=== PATIENT | male | born 1940 | race Caucasian/White ===

== ENCOUNTER 2020-05-08 02:17 | Outpatient (CLI) | payer MEDICARE, OTHER, SELFPAY ==
[2020-05-08 19:20] LABS: SARS-CoV-2 RNA PCR Negative
== END 2020-05-08 02:18 | disposition home or self-care (01) ==
LOC: ANHCOVIDDT 02:17
PROVIDERS: PCP Family Medicine; Visit Provider Internal Medicine Gastroenterology
DX: Z01.812 Encounter for preprocedural laboratory examination (principal); Z20.828 Contact with and (suspected) exposure to other viral communicable diseases
CPT/HCPCS: 87635; C9803; U0003

== ENCOUNTER 2020-05-10 02:12 | Day surgery (SDC) | payer MEDICARE, OTHER, SELFPAY ==
[2020-04-29 15:03] VITALS: BMI 23.4
[2020-05-10 09:08] VITALS: BP 179/64; PULSE 83; RESP 18; TEMP 36.7; O2SAT 100; BMI 23.4
[2020-05-10] MEDS: LACTATED RINGERS 1,000 ML 150 ML IV CONT (09:14)
--- NOTE | 2020-05-10 09:14 | WPDANESEPPF ---
Anes - Initial Pre Proc Eval Procedure: Operation Date: 05/10/20 10:00 Proposed Procedures p Screening Colonoscopy - Monty Whyte MD Date/Time: 05/10/20 09:14 Surgeon: Monty Whyte MD Pre Op Diagnosis: Neoplasm Screening Patient Data Age: 79 Gender: M Height: 1.73 m Weight: 70 kg Last Vital Signs Temp 36.7 C 05/10/20 09:08 Pulse 83 05/10/20 09:08 Resp 18 05/10/20 09:08 BP 179/64 H 05/10/20 09:08 Pulse Ox 100 05/10/20 09:08 Allergies Allergy/AdvReac Type Severity Reaction Status Date / Time No Known Allergies Allergy Verified 05/10/20 09:05 Home Medications Medication Instructions Recorded Confirmed Type finasteride 5 mg PO DAILY 04/29/20 04/29/20 History ramipril 10 mg PO DAILY 04/29/20 04/29/20 History simvastatin 40 mg PO DAILY 04/29/20 04/29/20 History tamsulosin 0.4 mg PO DAILY 04/29/20 04/29/20 History Patient hx anesthesia problems: none Family hx anesthesia problems: none PMFSH Past Medical History Medical History (Updated 05/10/20 @ 09:16 by Ken Rod MD) Anemia Arthritis BPH (benign prostatic hyperplasia) Cancer BCCA HEAD REMOVED HTN (hypertension) Hypercholesterolemia Social History Social History Substance use type: does not use Living arrangements: with family Anes - Eval Final PreProcedure Day of Procedure 05/10/20 09:14 Patient weight: normal Heart: regular rate and rhythm Lungs: clear to auscultation and normal air movement Airway: Mallampati scale class II Neurological: alert and oriented Last oral intake: >/= 8 hours ASA classification: II Emergent: no Anesthetic plan: proceed Anesthesia type and monitoring: general GIVS Informed Consent: The patient's anesthetic plan and its attendant risks and benefits were discussed with the patient/family/POA. Questions were solicited and answers provided to the satisfaction of the patient/family/POA.
--- NOTE | 2020-05-10 09:24 | P.HP_ITS ---
History of Present Illness History of Present Illness Consent: Risks, benefits, and alternatives have been discussed and questions answered. Patient agrees to proceed with procedure. Chief complaint: Neoplasm Screening Narrative: Freedom Palomino is a 79 year old W male referred for screening colonoscopy. Patient states his colonoscopy performed 2009 for rectal bleeding still he had a tear I do not have any records available. He has no history of polyps no family history of colon cancer. He has had some mild change in bowel habits with constipation and loose stool. No further rectal bleeding. [facility], LAT[facility] Past Medical History Medical History Anemia Arthritis BPH (benign prostatic hyperplasia) Cancer BCCA HEAD REMOVED HTN (hypertension) Hypercholesterolemia Social History Social History Substance use type: does not use Living arrangements: with family Meds Home Medications and Allergies Home Medications Medication Instructions Recorded Confirmed Type finasteride 5 mg PO DAILY 04/29/20 04/29/20 History ramipril 10 mg PO DAILY 04/29/20 04/29/20 History simvastatin 40 mg PO DAILY 04/29/20 04/29/20 History tamsulosin 0.4 mg PO DAILY 04/29/20 04/29/20 History Allergies Allergy/AdvReac Type Severity Reaction Status Date / Time No Known Allergies Allergy Verified 05/10/20 09:05 Vital Signs Vital Signs - 24 hr 05/10/20 09:08 Temperature 36.7 C Pulse Rate 83 Respiratory Rate 18 Blood Pressure 179/64 H Pulse Oximetry 100 Exam Const: Orientation/consciousness: patient oriented x3 Resp: Auscultation: clear to auscultation bilaterally Cardio: Rate: regular rate Rhythm: regular rhythm Heart sounds: no murmurs GI: GI Palp: Yes Soft to palpation, No Tenderness to palpation present (GI), Yes No hepatosplenomegaly present and No Palpable mass present Auscultation: normal bowel sounds Neuro: General: patient oriented x3 and no focal motor deficits Extrem: General: no pedal edema Assessment and Plan Additional Plan Screening colonoscopy in average risk patient
[2020-05-10 10:28] VITALS: BP 90/40; PULSE 68; RESP 19; O2SAT 98
[2020-05-10 10:38] VITALS: BP 113/59; PULSE 69; RESP 19; O2SAT 100
[2020-05-10 10:48] VITALS: BP 129/60; PULSE 68; RESP 29; O2SAT 100
== END 2020-05-10 11:05 | disposition home or self-care (01) ==
PROVIDERS: PCP Family Medicine; Visit Provider Internal Medicine Gastroenterology
PROC: 0DJD8ZZ Inspection of Lower Intestinal Tract, Via Natural or Artificial Opening Endoscopic (ICD-10-PCS; CPT 45378; principal; 2020-05-10 10:00)
DX: Z12.11 Encounter for screening for malignant neoplasm of colon (principal); K57.30 Diverticulosis of large intestine without perforation or abscess without bleeding; K64.8 Other hemorrhoids; I10 Essential (primary) hypertension; E78.00 Pure hypercholesterolemia, unspecified; N40.0 Benign prostatic hyperplasia without lower urinary tract symptoms; Z85.828 Personal history of other malignant neoplasm of skin; Z79.899 Other long term (current) drug therapy
CPT/HCPCS: G0121; J2704; J7120

== ENCOUNTER 2022-02-20 09:39 | Outpatient (CLI) | payer MEDICARE, OTHER, SELFPAY ==
--- NOTE | ~2022-02-20 | MR_ITS ---
EXAMINATION: MR lumbar spine wo con DATE: 02/20/2022 10:14 INDICATION: Lumbar radiculopathy. TECHNIQUE: Magnetic resonance imaging (MRI) of the lumbar spine was performed without intravenous con trast. Sequences included sagittal T2-weighted FSE, sagittal T2-weighted FS FSE, sagittal T1-weighted FSE, and axial T2-weighted FSE. COMPARISON: None FINDINGS: There is 26 degrees dextroscoliosis of lumbar spine. There is 3 mm anterolisthesis of L5 on S1. There is mild chronic anterior wedging of T11 and T12 vertebral bodies. There is severely decrea sed disc height from L2-L3 through L5-S1 with endplate remodeling. The distal spinal cord signal inte nsity is normal. The conus medullaris is at L1. The following disc levels are specifically discussed: L1-L2: The disc is bulging. There is severe right and mild left facet joint osteoarthritis. There is mild right neural foraminal stenosis. There is no central canal stenosis. L2-L3: The disc is bulging and has an annular fissure. There is mild right and severe left facet join t osteoarthritis. There is mild bilateral neural foraminal stenosis. There is mild central canal sten osis. L3-L4: The disc is bulging and has an annular fissure. There is severe bilateral facet joint osteoart hritis. There is mild bilateral neural foraminal stenosis. There is mild central canal stenosis. L4-L5: The disc is bulging and has an annular fissure. There is severe right and moderate left facet joint osteoarthritis. There is moderate right and mild left neural foraminal stenosis. There is mild central canal stenosis. L5-S1: The disc is bulging and has an annular fissure. There is severe bilateral facet joint osteoart hritis. There is moderate right and mild left neural foraminal stenosis. There is mild central canal stenosis. IMPRESSION: 1. Severe lumbar spondylosis. 2. Lumbar dextroscoliosis. Reviewed, dictated and finalized at location A.
== END 2022-02-20 09:40 | disposition home or self-care (01) ==
PROVIDERS: PCP Family Medicine; Visit Provider Nurse Practitioner Family
DX: M47.26 Other spondylosis with radiculopathy, lumbar region (principal)
CPT/HCPCS: 72148

== ENCOUNTER 2022-05-28 11:04 | Outpatient (CLI) | payer MEDICARE, OTHER, SELFPAY ==
[2022-05-28 12:09] LABS: Basophils Percent Auto 0.5 % (0.2-1.2); Eosinophils Absolute Auto 0.1 K/mm3 (0-0.3); Eosinophils Percent Auto 1.4 % (0-4.4); Hematocrit 37.2 % (42.0-52.0); Hemoglobin 12.4 g/dL (14.0-18.0); Immature Granulocyte Absolute 0.02 K/mm3 (0.00-0.031); Immature Granulocyte Percent A 0.5 % (0-0.5); Lymphocytes Absolute Auto 0.83 K/mm3 (0.9-3.2); Lymphocytes Percent Auto 19.9 % (18.3-44.2); Mean Corpuscular HGB Conc 33.3 g/dl (32-36); Mean Platelet Volume 8.3 fl (7.4-10.4); Monocytes Absolute Auto 0.4 K/mm3 (0.1-0.6); Monocytes Percent Auto 9.6 % (2.6-8.5); Neutrophils Absolute Auto 2.8 K/mm3 (1.3-6.7); Neutrophils Percent Auto 68.1 % (45.5-73.1); Platelet Count Result 156 k/mm3 (150-375); Red Blood Count 3.35 M/mm3 (4.6-6.20); Red Cell Distribution Width 12.1 % (11.5-14.5); White Blood Count 4.2 K/mm3 (4.5-10.0)
[2022-05-28 12:23] LABS: Alanine Aminotransferase 21 U/L (6-50); Albumin Level 4.6 g/dL (3.5-5.1); Alkaline Phosphatase 75 U/L (38-126); Anion Gap 8 mmol/L (8-16); Aspartate Amino Transferase 28 U/L (17-59); Bilirubin,Total 1.1 mg/dL (0.2-1.3); Blood Urea Nitrogen 14 mg/dL (9-20); Calcium 9.3 mg/dL (8.4-10.2); Carbon Dioxide 27 mmol/L (22-30); Chloride 98 mmol/L (98-107); Estimated Glomerular Filt Rate > 60; Glucose 104 mg/dL (65-110); Potassium 4.3 mmol/L (3.4-5.0); Sodium 133 mmol/L (137-145)
[2022-05-28 12:49] LABS: Iron 96 ug/dL (49-181)
[2022-05-28 12:54] LABS: Anisocytosis 1+ (NORMAL); Platelet Estimate Adequate (Adequate); Schistocytes None Seen (NORMAL)
[2022-05-28 12:58] LABS: Percent Iron Saturation 26 % (20-50)
[2022-05-28 13:31] LABS: Folic Acid > 20.0 ng/mL (2.76->20)
[2022-05-31 16:59] LABS: Methylmalonic Acid 109 nmol/L (87-318)
== END 2022-05-28 11:05 | disposition home or self-care (01) ==
LOC: ANHLAB 11:25
PROVIDERS: PCP Family Medicine; Visit Provider Internal Medicine Hematology & Oncology
DX: D64.9 Anemia, unspecified (principal)
CPT/HCPCS: 36415; 80053; 82607; 82728; 82746; 83540; 83550; 83921; 84443; 85025

== ENCOUNTER 2022-10-08 15:11 | Outpatient (CLI) | payer MEDICARE, OTHER, SELFPAY ==
[2022-10-08 15:21] LABS: Hematocrit 32.4 % (42.0-52.0); Hemoglobin 11.1 g/dL (14.0-18.0); Mean Corpuscular HGB Conc 34.3 g/dl (32-36); Mean Corpuscular Hemoglobin 37.5 pg (26-34); Mean Corpuscular Volume 109.5 fl (80-100); Mean Platelet Volume 7.8 fl (7.4-10.4); Platelet Count Result 141 k/mm3 (150-375); Red Blood Count 2.96 M/mm3 (4.6-6.20); Red Cell Distribution Width 12.3 % (11.5-14.5); White Blood Count 4.9 K/mm3 (4.5-10.0)
[2022-10-08 15:25] LABS: Blood Urea Nitrogen 13 mg/dL (8-26); Carbon Dioxide 30 mmol/L (22-30); Chloride 96 mmol/L (98-109); Estimated Glomerular Filt Rate > 60; Glucose 133 mg/dL (70-105); Ionized Calcium (POC) 1.16 mmol/L (1.11-1.31); Potassium 4.4 mmol/L (3.5-4.9); Sodium 133 mmol/L (138-146)
[2022-10-08 18:33] LABS: Iron 103 ug/dL (49-181)
[2022-10-08 18:48] LABS: Percent Iron Saturation 29 % (20-50)
== END 2022-10-08 15:12 | disposition home or self-care (01) ==
LOC: ANHLAB 15:12
PROVIDERS: PCP Family Medicine; Visit Provider Internal Medicine Hematology & Oncology
DX: D64.9 Anemia, unspecified (principal)
CPT/HCPCS: 36415; 80047; 82607; 82728; 83540; 83550; 85027

== ENCOUNTER 2022-10-26 11:18 | Outpatient (CLI) | payer MEDICARE, OTHER, SELFPAY ==
[2022-10-28 18:31] LABS: Osmolality, Urine 239 mOsm/kg (50-1200)
[2022-10-29 12:35] LABS: Albumin 4.2 g/dL (3.8-4.8); Alpha 1 Globulin 0.2 g/dL (0.2-0.3); Alpha 2 Globulin 0.6 g/dL (0.5-0.9); Beta 1 Globulin 0.5 g/dL (0.4-0.6); Protein, Total 6.7 g/dL (6.1-8.1)
== END 2022-10-26 11:19 | disposition home or self-care (01) ==
PROVIDERS: PCP Family Medicine; Visit Provider Internal Medicine Nephrology
DX: D64.9 Anemia, unspecified (principal); E87.1 Hypo-osmolality and hyponatremia
CPT/HCPCS: 36415; 82533; 83930; 83935; 84155; 84165; 84443

== ENCOUNTER 2022-11-02 08:51 | Outpatient (CLI) | payer MEDICARE, OTHER, SELFPAY ==
[2022-11-02 11:16] LABS: Albumin Level 4.3 g/dL (3.5-5.1); Anion Gap 5 mmol/L (8-16); Blood Urea Nitrogen 15 mg/dL (9-20); Calcium 8.9 mg/dL (8.4-10.2); Carbon Dioxide 28 mmol/L (22-30); Chloride 99 mmol/L (98-107); Estimated Glomerular Filt Rate > 60; Glucose 111 mg/dL (65-110); Phosphorus 3.2 mg/dL (2.5-4.5); Potassium 4.4 mmol/L (3.4-5.0); Sodium 132 mmol/L (137-145)
== END 2022-11-02 08:52 | disposition home or self-care (01) ==
PROVIDERS: PCP Family Medicine; Visit Provider Internal Medicine Nephrology
DX: E87.1 Hypo-osmolality and hyponatremia (principal)
CPT/HCPCS: 36415; 80069

== ENCOUNTER 2022-11-10 08:31 | Outpatient (CLI) | payer MEDICARE, OTHER, SELFPAY | END 2022-11-10 08:32 | disposition home or self-care (01) | PROVIDERS: PCP Family Medicine; Visit Provider Internal Medicine Nephrology | DX: E87.1 Hypo-osmolality and hyponatremia (principal) | CPT/HCPCS: 36415; 82533; 96372; J0834 ==

== ENCOUNTER 2023-01-20 10:41 | Outpatient (CLI) | payer MEDICARE, OTHER, SELFPAY ==
--- NOTE | ~2023-01-20 | XR_ITS ---
XR chest 2V 01/20/2023 10:58 Indication: Hyponatremia. History of fractured ribs. Procedure: 2 view chest Comparison: No prior studies for comparison. Findings: There are multiple healed right rib fractures. There is blunting of the right lateral costo phrenic recess which may represent a small effusion or pleural thickening. Heart size normal. Left chalo ng clear. No acute osseous abnormality. No acute focal pneumonia or edema. No pneumothorax. Impression: 1: Small right pleural effusion versus pleural thickening. Reviewed, dictated and finalized at location B. Impression: 1: Small right pleural effusion versus pleural thickening.
== END 2023-01-20 10:42 | disposition home or self-care (01) ==
PROVIDERS: PCP Family Medicine; Visit Provider Internal Medicine Nephrology
DX: E87.1 Hypo-osmolality and hyponatremia (principal); J90 Pleural effusion, not elsewhere classified
CPT/HCPCS: 71046

== ENCOUNTER 2023-01-20 11:13 | Outpatient (CLI) | payer MEDICARE, OTHER, SELFPAY ==
[2023-01-20 11:36] LABS: Basophils Percent Auto 0.9 % (0.2-1.2); Eosinophils Absolute Auto 0.1 K/mm3 (0-0.3); Eosinophils Percent Auto 1.4 % (0-4.4); Hematocrit 32.8 % (42.0-52.0); Hemoglobin 11.3 g/dL (14.0-18.0); Lymphocytes Absolute Auto 0.65 K/mm3 (0.9-3.2); Lymphocytes Percent Auto 15.2 % (18.3-44.2); Mean Corpuscular HGB Conc 34.5 g/dl (32-36); Mean Corpuscular Hemoglobin 37.2 pg (26-34); Mean Corpuscular Volume 107.9 fl (80-100); Mean Platelet Volume 8.1 fl (7.4-10.4); Monocytes Absolute Auto 0.4 K/mm3 (0.1-0.6); Monocytes Percent Auto 9.3 % (2.6-8.5); Neutrophils Absolute Auto 3.1 K/mm3 (1.3-6.7); Neutrophils Percent Auto 73.2 % (45.5-73.1); Platelet Count Result 163 k/mm3 (150-375); Red Blood Count 3.04 M/mm3 (4.6-6.20); Red Cell Distribution Width 11.6 % (11.5-14.5); White Blood Count 4.3 K/mm3 (4.5-10.0)
[2023-01-20 18:03] LABS: Iron 73 ug/dL (49-181)
[2023-01-20 18:09] LABS: Alanine Aminotransferase 20 U/L (6-50); Albumin Level 4.3 g/dL (3.5-5.1); Alkaline Phosphatase 113 U/L (38-126); Anion Gap 5 mmol/L (8-16); Aspartate Amino Transferase 26 U/L (17-59); Bilirubin,Total 0.9 mg/dL (0.2-1.3); Blood Urea Nitrogen 14 mg/dL (9-20); Calcium 8.8 mg/dL (8.4-10.2); Carbon Dioxide 29 mmol/L (22-30); Chloride 95 mmol/L (98-107); Estimated Glomerular Filt Rate > 60; Glucose 95 mg/dL (65-110); Potassium 4.7 mmol/L (3.4-5.0); Sodium 129 mmol/L (137-145)
[2023-01-20 18:13] LABS: Percent Iron Saturation 19 % (20-50)
[2023-01-20 19:28] LABS: Folic Acid > 20.0 ng/mL (2.76->20)
== END 2023-01-20 11:14 | disposition home or self-care (01) ==
LOC: ANHLAB 11:15
PROVIDERS: PCP Family Medicine; Visit Provider Internal Medicine Hematology & Oncology
DX: D64.9 Anemia, unspecified (principal)
CPT/HCPCS: 36415; 71046; 80053; 82607; 82728; 82746; 83540; 83550; 85025

== ENCOUNTER 2023-03-01 13:45 | Outpatient (CLI) | payer MEDICARE, OTHER, SELFPAY ==
--- NOTE | ~2023-03-01 | DEXA_ITS ---
Bone Density Report Name: VENITA MINOR Age: 82 Sex: Male Ethnicity: White Date of : 1940 Indication: screening for osteoporosis; height loss; prior fracture; Referring Provider: VALERIE, DAVE Rojas Study: Bone densitometry was performed. Exam Date: March 01, 2023 Accession number: [id number] Bone Density: Region BMD T-score Z-score Classification AP Spine(L1, L4) 0.920 -1.5 -0.3 Osteopenia Femoral Neck (Left) 0.755 -1.3 0.3 Osteopenia Total Hip (Left) 1.025 -0.1 1.1 Normal Femoral Neck (Right) 0.704 -1.7 -0.1 Osteopenia Total Hip (Right) 0.948 -0.6 0.6 Normal Total Hip Mean 0.986 -0.4 0.9 Normal World Health Organization criteria for BMD impression classify patients as: Normal (T-score at or above -1.0), Osteopenia (T-score between -1.0 and -2.5), or Osteoporosis (T-score at or below -2.5). 10-year Fracture Risk: FRAX not reported because: Prior hip or vertebral fracture Clinical Information Provided by Patient: Have had a previous hip or vertebral fracture Has had a low trauma fracture Patient maximum height was 68 Drinks caffeinated beverages Impression: The patient has low bone mass, based on the Right Femoral Neck T-score. The patient has risk factors, including: previous fracture. Discussion: INCREASED RISK OF FRACTURE DUE TO HISTORY OF LOW TRAUMA FRACTURE. The patient's previous fracture puts the patient at high risk of a future fracture. In untreated patients, the risk of osteoporotic fracture increases approximately two-fold for each 1.0 SD decrease in T-score. Low bone density is not the only risk factor for fracture; also consider factors such as patient's age, frailty or poor health, risk of falling, risk of injury, previous osteoporotic fracture, family history of osteoporosis, cigarette smoking, low body weight, etc. Not everyone with a low trauma fracture has osteoporosis; osteomalacia and other metabolic bone disorders should also be considered. Patients who have osteoporosis should be evaluated for specific diseases and conditions (secondary causes) that may cause or contribute to bone loss and fracture risk. National Osteoporosis Foundation (NOF) recommends pharmacologic intervention for patients with a prior low trauma hip or vertebral fracture regardless of BMD T-score. The patient should follow a healthful lifestyle (good nutrition with adequate calcium and vitamin D, and appropriate weight-bearing exercise). Follow-Up: Consider a repeat BMD and Vertebral Fracture Assessment (VFA) exam in 2 years or sooner if medically necessary, to reassess this patient's status. Reported by: DO on 03/01/2023 2:29:00 PM. Reviewed, dictated and finalized at location [facility]
== END 2023-03-01 13:46 | disposition home or self-care (01) ==
LOC: ANHIMG 13:47
PROVIDERS: PCP Family Medicine; Visit Provider Family Medicine
DX: S32.009A Unspecified fracture of unspecified lumbar vertebra, initial encounter for closed fracture (principal); X58.XXXA Exposure to other specified factors, initial encounter; M85.88 Other specified disorders of bone density and structure, other site; M85.852 Other specified disorders of bone density and structure, left thigh; M85.851 Other specified disorders of bone density and structure, right thigh
CPT/HCPCS: 77080

== ENCOUNTER 2023-05-09 08:50 | Emergency (ER) | payer MEDICARE, OTHER, SELFPAY ==
--- NOTE | ~2023-05-09 | CT_ITS ---
EXAMINATION: CT abdomen pelvis w con DATE: 05/09/2023 09:52 INDICATION: Left lower quadrant abdominal pain TECHNIQUE: Computed tomography (CT) of the abdomen and pelvis was performed with 100 CC Omnipaque 350 intravenous contrast. Automated exposure control and iterative reconstruction technique were employe d. Exam dose: 389.34 mGy-cm total exam DLP. COMPARISON: None. FINDINGS: Likely chronic lateral tenting of the right diaphragm and discoid scarring in the right low er lung. Minimal dependent atelectasis in the lower lobes. No consolidation at the lung bases. Coronary artery calcifications. Normal heart size. No pericardial or pleural effusion. Approximately 9 mm hepatic dome cyst. The liver is otherwise unremarkable. The gallbladder is present . No bile duct or pancreatic duct dilatation. No pancreatic mass lesion or calcification. Normal sple amanda size. Normal morphology of the adrenal glands. 4 mm right renal cyst. The kidneys are otherwise unremarkable. No urinary tract calculus or hydrouret eronephrosis. The urinary bladder is unremarkable. There is prominent calcification at the origins of the celiac and superior mesenteric and renal arter ies. Atherosclerotic calcification but no aneurysm of the abdominal aorta and iliac arteries. No intraperitoneal or retroperitoneal or pelvic mass lesion or adenopathy or ascites. Normal appendix. Diverticulosis of left and right colon. There is thickening of the wall of the left colon near the junction of the distal descending and prox imal sigmoid colon with mild pericolic fat stranding, which may be due to mild uncomplicated divertic ulitis, without evidence of abscess. No bowel obstruction or intraperitoneal free air is detected. Severe burst fracture deformity of T12. Multilevel degenerative disc disease of the lumbar spine. Degenerative change at the apophyseal joints of the lumbar and lumbosacral area with associated minim al grade 1 anterolisthesis at L5-S1. IMPRESSION: Uncomplicated diverticulitis is suggested in projection of the distal descending and pro ximal sigmoid colon Diverticulosis of left and right colon Normal appendix 9 mm hepatic dome cyst 4 mm right renal cyst Severe burst fracture deformity of T12 Multilevel degenerative disc disease of the lumbar spine Reviewed, dictated and finalized at [facility]. Reviewed, dictated and finalized at location A. IMPRESSION: Uncomplicated diverticulitis is suggested in projection of the dis javy descending and proximal sigmoid colon Diverticulosis of left and right colon Normal appendix 9 mm hepatic dome cyst 4 mm right renal cyst Severe burst fracture deformity of T12 Multilevel degenerative disc disease of the lumbar spine
[2023-05-09 08:51] VITALS: BP 172/84; PULSE 97; RESP 16; TEMP 36.3; O2SAT 99
[2023-05-09 09:13] LABS: Basophils Percent Auto 0.2 % (0.2-1.2); Eosinophils Percent Auto 0.5 % (0-4.4); Hematocrit 37.8 % (42.0-52.0); Hemoglobin 12.9 g/dL (14.0-18.0); Immature Granulocyte Absolute 0.01 K/mm3 (0.00-0.031); Immature Granulocyte Percent A 0.2 % (0-0.5); Lymphocytes Absolute Auto 0.55 K/mm3 (0.9-3.2); Lymphocytes Percent Auto 8.3 % (18.3-44.2); Mean Corpuscular HGB Conc 34.1 g/dl (32-36); Mean Corpuscular Hemoglobin 37.1 pg (26-34); Mean Corpuscular Volume 108.6 fl (80-100); Mean Platelet Volume 8.2 fl (7.4-10.4); Monocytes Absolute Auto 0.4 K/mm3 (0.1-0.6); Monocytes Percent Auto 6.3 % (2.6-8.5); Neutrophils Absolute Auto 5.6 K/mm3 (1.3-6.7); Neutrophils Percent Auto 84.5 % (45.5-73.1); Platelet Count Result 146 k/mm3 (150-375); Red Blood Count 3.48 M/mm3 (4.6-6.20); Red Cell Distribution Width 11.8 % (11.5-14.5); White Blood Count 6.6 K/mm3 (4.5-10.0)
[2023-05-09 09:16] VITALS: BP 172/86; PULSE 99; RESP 19; O2SAT 100
[2023-05-09 09:28] LABS: Alanine Aminotransferase 22 U/L (6-50); Albumin Level 4.6 g/dL (3.5-5.1); Alkaline Phosphatase 84 U/L (38-126); Anion Gap 5 mmol/L (8-16); Aspartate Amino Transferase 34 U/L (17-59); Bilirubin,Total 1.2 mg/dL (0.2-1.3); Blood Urea Nitrogen 16 mg/dL (9-20); Calcium 9.1 mg/dL (8.4-10.2); Carbon Dioxide 29 mmol/L (22-30); Chloride 100 mmol/L (98-107); Estimated CRCL calculation 49 ml/min; Estimated Glomerular Filt Rate > 60; Glucose 134 mg/dL (65-110); Lipase 99 U/L (23-300); Potassium 4.1 mmol/L (3.4-5.0); Sodium 134 mmol/L (137-145)
--- NOTE | 2023-05-09 09:32 | ED.ABDPAIN ---
HPI - Abdominal Pain General Chief Complaint: Abdominal Pain Stated Complaint: diffuse abd pain Time Seen by Provider: 05/09/23 09:00 History of Present Illness HPI narrative: 82-year-old male with a history of squamous cell carcinoma of the scalp, BPH, hypertension, hyperlipidemia, hyponatremia, CAD reports for evaluation for left lower quadrant pain since yesterday evening. Patient states he felt good all day yesterday until the evening when he started experiencing left lower quadrant pain. States he ate dinner last night which did not improve or worsen his abdominal pain. States he woke up this morning with the persistent abdominal pain and went to urgent care. States the provider urgent care advised him to come to the ED for a CT scan for possible diverticulitis. The patient denies a history of diverticulitis but does state it runs in his family. He reports having 5 bowel movements this morning which were all normal. He states he normally has 2 bowel movements a day. He denies fever, melena, hematochezia, diarrhea, nausea or vomiting, chest pain or shortness of breath, cough or congestion, dysuria or hematuria, flank pain. He does report difficulty initiating his urinary stream at times, he is being treated for BPH with tamsulosin and finasteride and currently sees a urologist. Related Data Home Medications Medication Instructions Recorded Confirmed finasteride 5 mg tablet 5 mg PO DAILY 04/29/20 12/21/22 ramipril 10 mg capsule 10 mg PO DAILY 04/29/20 12/21/22 simvastatin 40 mg tablet 40 mg PO DAILY 04/29/20 12/21/22 tamsulosin 0.4 mg capsule 0.4 mg PO DAILY 04/29/20 12/21/22 aspirin 81 mg tablet,delayed 81 mg PO DAILY 10/26/22 12/21/22 release (Adult Aspirin Regimen) tramadol 50 mg tablet 50 mg PO DAILY PRN 10/26/22 12/21/22 Allergies Allergy/AdvReac Type Severity Reaction Status Date / Time No Known Allergies Allergy Verified 05/09/23 09:14 Review of Systems Review of Systems: CONSTITUTIONAL: Denies fever, chills EYES: Denies visual changes, redness, or discharge. ENT: Denies rhinorrhea, congestion, sore throat, or otalgia. CARDIOVASCULAR: Denies chest pain, palpitations, or edema. RESPIRATORY: Denies cough or dyspnea. GASTROINTESTINAL: See HPI GENITOURINARY: Denies dysuria or hematuria. SKIN: Denies rash or itching. MUSCULOSKELETAL: Denies back pain, joint pain, or myalgia. NEUROLOGIC: Denies headache, numbness, dizziness, or weakness. PSYCHIATRIC: Denies anxiety or depression. [facility] Past Medical History Medical History (Updated 05/09/23 @ 11:32 by Nimco Aponte PA-C) Anemia Arthritis BPH (benign prostatic hyperplasia) Cancer BCCA HEAD REMOVED HTN (hypertension) Hypercholesterolemia Social History Social History Smoking status: Former smoker Alcohol intake: never Substance use: never Substance use type: does not use Lack of Transportation: No Lack of Food: Never True Current Housing: I Have Housing Concerned About Future Housing: No Difficulty Paying Gas/Electric Bills: No Difficulty Paying for Meds: No Currently Unemployed: No Education: High School Diploma/GED Living arrangements: with family Gender identity (if verbalized by the patient): Male Exam Narrative: GENERAL: Well-appearing, in no acute distress. Patient resting comfortably in exam bed. He is pleasant and conversational. HEAD: Normocephalic EYES: PERRLA ENT: Nares clear. Mucous membranes moist. Oropharynx without tonsillar hypertrophy exudate or other lesions. NECK: Supple. CHEST: No respiratory distress. Clear to auscultation, no adventitious breath sounds. HEART: Regular rate and rhythm. No murmur heard. Normal peripheral pulses. ABDOMEN: Normal active bowel sounds. Abdomen soft with tenderness and guarding in the left lower quadrant. No rebound or rigidity. Negative heeltap. No overlying skin changes. No CVA tenderness. EX
[2023-05-09] MEDS: SODIUM CHLORIDE 0.9% IV 1,000 ML 999 ML IV CONT (09:51)
[2023-05-09] MEDS: ACETAMINOPHEN 325 MG TABLET 650 MG PO (09:52)
[2023-05-09 11:09] LABS: Appearance Urine Clear (Clear); Bilirubin Urine Negative (Negative); Blood Urine Negative (Negative); Color Urine Yellow (Yellow); Glucose Urine UA Negative (Negative); Ketones Urine Negative (Negative); Leukocyte Esterase Ur Negative LEU/UL (Negative); Nitrate Urine Negative (Negative); Protein Urine Negative (Negative); Specific Grav Ur 1.024 (1.001-1.035); Urobilinogen Urine 0.2 mg/dL (<2.0)
[2023-05-09 11:16] VITALS: BP 148/69; PULSE 89; RESP 16; O2SAT 98
[2023-05-09] MEDS: AMOXICILLIN/CLAVULANATE K 875-125 MG TAB 1 TABLET PO (11:16)
[2023-05-09 11:26] LABS: Add Urine Microscopic? NO
[2023-05-09 11:39] VITALS: BP 149/80; PULSE 81; RESP 23; O2SAT 100
== END 2023-05-09 11:47 | disposition home or self-care (01) ==
PROVIDERS: Emergency Medicine; Emergency Provider Physician Assistant; PCP Family Medicine
DX: K57.32 Diverticulitis of large intestine without perforation or abscess without bleeding (principal); M19.90 Unspecified osteoarthritis, unspecified site; I10 Essential (primary) hypertension; E78.5 Hyperlipidemia, unspecified
CPT/HCPCS: 36415; 74177; 80053; 81003; 83690; 85025; 96360; 99284; A9270; J7030; Q9967

== ENCOUNTER 2023-06-11 11:19 | Outpatient (CLI) | payer MEDICARE, OTHER, SELFPAY ==
--- NOTE | ~2023-06-11 | XR_ITS ---
Clinical Indication: Abnormal findings on diagnostic imaging PA and lateral views of the chest: Comparison: 01/20/2023 Findings: There is chronic right basilar density and/or tenting of the right hemidiaphragm. No acute pulmonary abnormality seen. Cardiomediastinal silhouette is within normal limits. Chronic right rib fracture deformities are unchanged. Impression: No acute abnormality. Chronic tenting or elevation of the right hemidiaphragm and/or hazy opacity at the right lung base. Chronic rib fracture deformities. Reviewed, dictated and finalized at [facility]. Impression: No acute abnormality. Chronic tenting or elevation of the right hemidiaphragm and/or hazy opacity at the right lung base. Chronic rib fracture deformities.
[2023-06-11 13:10] LABS: Albumin Level 4.4 g/dL (3.5-5.1); Anion Gap 3 mmol/L (8-16); Blood Urea Nitrogen 13 mg/dL (9-20); Calcium 9.1 mg/dL (8.4-10.2); Carbon Dioxide 30 mmol/L (22-30); Chloride 100 mmol/L (98-107); Estimated Glomerular Filt Rate > 60; Glucose 93 mg/dL (65-110); Phosphorus 3.8 mg/dL (2.5-4.5); Potassium 4.3 mmol/L (3.4-5.0); Sodium 133 mmol/L (137-145)
== END 2023-06-11 11:20 | disposition home or self-care (01) ==
LOC: ANHIMG 11:21
PROVIDERS: PCP Family Medicine; Visit Provider Internal Medicine Nephrology
DX: R93.89 Abnormal findings on diagnostic imaging of other specified body structures (principal); E87.1 Hypo-osmolality and hyponatremia
CPT/HCPCS: 36415; 71046; 80069

== ENCOUNTER 2023-07-29 10:46 | Outpatient (CLI) | payer MEDICARE, OTHER, SELFPAY ==
[2023-07-29 11:05] LABS: Basophils Percent Auto 0.5 % (0.2-1.2); Eosinophils Absolute Auto 0.1 K/mm3 (0-0.3); Eosinophils Percent Auto 1.6 % (0-4.4); Hematocrit 35.9 % (42.0-52.0); Immature Granulocyte Absolute 0.01 K/mm3 (0.00-0.031); Immature Granulocyte Percent A 0.3 % (0-0.5); Lymphocytes Absolute Auto 0.85 K/mm3 (0.9-3.2); Lymphocytes Percent Auto 22.4 % (18.3-44.2); Mean Corpuscular HGB Conc 33.4 g/dl (32-36); Mean Corpuscular Hemoglobin 36.7 pg (26-34); Mean Corpuscular Volume 109.8 fl (80-100); Monocytes Absolute Auto 0.3 K/mm3 (0.1-0.6); Neutrophils Absolute Auto 2.5 K/mm3 (1.3-6.7); Neutrophils Percent Auto 66.2 % (45.5-73.1); Platelet Count Result 138 k/mm3 (150-375); Red Blood Count 3.27 M/mm3 (4.6-6.20); Red Cell Distribution Width 11.9 % (11.5-14.5); White Blood Count 3.8 K/mm3 (4.5-10.0)
[2023-07-29 12:12] LABS: Iron 122 ug/dL (49-181)
[2023-07-29 12:13] LABS: Anion Gap 9 mmol/L (8-16); Blood Urea Nitrogen 12 mg/dL (9-20); Calcium 9.3 mg/dL (8.4-10.2); Carbon Dioxide 27 mmol/L (22-30); Chloride 97 mmol/L (98-107); Estimated Glomerular Filt Rate > 60; Glucose 104 mg/dL (65-110); Potassium 4.5 mmol/L (3.4-5.0); Sodium 133 mmol/L (137-145)
[2023-07-29 12:21] LABS: Percent Iron Saturation 35 % (20-50)
[2023-07-29 14:01] LABS: Folic Acid > 20.0 ng/mL (2.76->20)
[2023-08-02 14:55] LABS: Testosterone Free 46.3 pg/mL (30.0-135.0); Testosterone Total 498 ng/dL (250-1100)
== END 2023-07-29 10:47 | disposition home or self-care (01) ==
LOC: ANHLAB 10:49
PROVIDERS: PCP Family Medicine; Visit Provider Internal Medicine Hematology & Oncology
DX: D64.9 Anemia, unspecified (principal); E29.1 Testicular hypofunction
CPT/HCPCS: 36415; 80048; 82607; 82728; 82746; 83540; 83550; 84402; 84403; 85025

== ENCOUNTER 2023-12-13 10:53 | Outpatient (CLI) | payer MEDICARE, OTHER, SELFPAY ==
[2023-12-13 11:47] LABS: Albumin Level 4.3 g/dL (3.5-5.1); Anion Gap 5 mmol/L (4-12); Blood Urea Nitrogen 12 mg/dL (9-20); Calcium 9.3 mg/dL (8.4-10.2); Carbon Dioxide 24 mmol/L (22-30); Chloride 101 mmol/L (98-107); Estimated Glomerular Filt Rate > 60; Glucose 102 mg/dL (65-110); Phosphorus 3.4 mg/dL (2.5-4.5); Potassium 4.5 mmol/L (3.4-5.0); Sodium 130 mmol/L (137-145)
== END 2023-12-13 10:54 | disposition home or self-care (01) ==
LOC: ANHLAB 10:55
PROVIDERS: PCP Family Medicine; Visit Provider Internal Medicine Nephrology
DX: E87.1 Hypo-osmolality and hyponatremia (principal)
CPT/HCPCS: 36415; 80069

== ENCOUNTER 2024-01-31 11:08 | Outpatient (CLI) | payer MEDICARE, OTHER, SELFPAY ==
[2024-01-31 11:26] LABS: Basophils Percent Auto 0.7 % (0.2-1.2); Eosinophils Absolute Auto 0.1 K/mm3 (0-0.3); Eosinophils Percent Auto 2.2 % (0-4.4); Hematocrit 34.1 % (42.0-52.0); Hemoglobin 11.7 g/dL (14.0-18.0); Immature Granulocyte Absolute 0.01 K/mm3 (0.00-0.031); Immature Granulocyte Percent A 0.2 % (0-0.5); Lymphocytes Absolute Auto 0.82 K/mm3 (0.9-3.2); Lymphocytes Percent Auto 17.8 % (18.3-44.2); Mean Corpuscular HGB Conc 34.3 g/dl (32-36); Mean Corpuscular Hemoglobin 37.1 pg (26-34); Mean Corpuscular Volume 108.3 fl (80-100); Mean Platelet Volume 7.8 fl (7.4-10.4); Monocytes Absolute Auto 0.4 K/mm3 (0.1-0.6); Monocytes Percent Auto 9.3 % (2.6-8.5); Neutrophils Absolute Auto 3.2 K/mm3 (1.3-6.7); Neutrophils Percent Auto 69.8 % (45.5-73.1); Platelet Count Result 154 k/mm3 (150-375); Red Blood Count 3.15 M/mm3 (4.6-6.20); Red Cell Distribution Width 11.7 % (11.5-14.5); White Blood Count 4.6 K/mm3 (4.5-10.0)
[2024-01-31 12:08] LABS: Iron 129 ug/dL (49-181)
[2024-01-31 12:12] LABS: Alanine Aminotransferase 19 U/L (6-50); Albumin Level 4.2 g/dL (3.5-5.1); Alkaline Phosphatase 73 U/L (38-126); Anion Gap 2 mmol/L (4-12); Aspartate Amino Transferase 32 U/L (17-59); Blood Urea Nitrogen 16 mg/dL (9-20); Calcium 9.1 mg/dL (8.4-10.2); Carbon Dioxide 26 mmol/L (22-30); Chloride 102 mmol/L (98-107); Estimated Glomerular Filt Rate > 60; Glucose 101 mg/dL (65-110); Potassium 4.5 mmol/L (3.4-5.0); Sodium 130 mmol/L (137-145)
[2024-01-31 12:19] LABS: Percent Iron Saturation 38 % (20-50)
[2024-01-31 13:17] LABS: Folic Acid > 20.0 ng/mL (2.76->20)
== END 2024-01-31 11:09 | disposition home or self-care (01) ==
PROVIDERS: PCP Family Medicine Sports Medicine; Visit Provider Internal Medicine Hematology & Oncology
DX: D64.9 Anemia, unspecified (principal)
CPT/HCPCS: 36415; 80053; 82607; 82728; 82746; 83540; 83550; 85025

== ENCOUNTER 2024-06-16 12:26 | Emergency (ER) | payer MEDICARE, OTHER, SELFPAY ==
--- NOTE | ~2024-06-16 | CT_ITS ---
EXAMINATION: CT brain wo con DATE: 06/16/2024 14:57 INDICATION: Headaches. Hypertension. TECHNIQUE: Computed tomography (CT) of the head was performed without intravenous contrast. Sagittal and coronal reconstructions were performed. Automated exposure control and iterative reconstruction t echnique were employed. The dose-length product was 605.33 mGy-cm. COMPARISON: None FINDINGS: No acute intracranial hemorrhage, acute infarction or abnormal extra axial fluid collection. There is mild scattered white matter hypoattenuation consistent with chronic small vessel ischemic disease. S ymmetric prominence of the sulci consistent with mild to moderate age-appropriate diffuse cerebral vo lume loss. Ventricles are normal and symmetric. No mass/mass effect. Changes of bilateral intraocular lens replacement. The orbits, paranasal sinuses and mastoid air cells are normal. IMPRESSION: 1. Age-related changes the brain including mild to moderate diffuse volume loss and mild scattered wh ite matter hypoattenuation consistent with chronic small vessel ischemic disease. No other acute intr acranial process. Reviewed, dictated and finalized at location A. IMPRESSION: 1. Age-related changes the brain including mild to moderate diffuse volume loss and mild scattered white matter hypoattenuation consistent with chronic small vessel ischemic disease. No other acute intracranial process.
--- NOTE | ~2024-06-16 | XR_ITS ---
XR chest 2V 06/16/2024 13:33 Indication: Hypertension. Headache. Procedure: 2 view chest Comparison: 06/11/2023 Findings: Multiple healed right rib fractures. There is a lower thoracic wedge compression fracture w hich is chronic. No focal air space disease, pulmonary edema, pleural effusion or suspected pneumotho rax. There is a right thoracotomy defect involving the right fifth rib. Impression: 1: No acute cardiopulmonary disease. Reviewed, dictated and finalized at location B. Impression: 1: No acute cardiopulmonary disease.
[2024-06-16 12:38] VITALS: BP 188/86; PULSE 88; RESP 16; TEMP 36.6; O2SAT 99
[2024-06-16 12:41] VITALS: RESP 16
--- NOTE | 2024-06-16 12:43 | ECG_ITS ---
Test Date: 2024-06-16 12:56:36 Measurements Intervals [place] Rate: 87 P: 58 RI: 158 QRS: -15 QRSD: 86 T: 74 QT: 343 QTc: 415 Interpretive Statements SINUS RHYTHM SEPTAL MYOCARDIAL INFARCTION , PROBABLY OLD [40+ ms Q WAVE IN V1/V2] No previous ECG available for comparison Electronically Signed On 06-16-2024 13:46:20 CDT by Mark Lew M.D.
[2024-06-16 13:11] LABS: Basophils Percent Auto 0.5 % (0.2-1.2); Eosinophils Percent Auto 0.5 % (0-4.4); Hematocrit 34.2 % (42.0-52.0); Hemoglobin 12.1 g/dL (14.0-18.0); Immature Granulocyte Absolute 0.01 K/mm3 (0.00-0.031); Immature Granulocyte Percent A 0.2 % (0-0.5); Lymphocytes Absolute Auto 0.62 K/mm3 (0.9-3.2); Lymphocytes Percent Auto 15.2 % (18.3-44.2); Mean Corpuscular HGB Conc 35.4 g/dl (32-36); Mean Corpuscular Hemoglobin 38.4 pg (26-34); Mean Corpuscular Volume 108.6 fl (80-100); Mean Platelet Volume 8.4 fl (7.4-10.4); Monocytes Absolute Auto 0.3 K/mm3 (0.1-0.6); Monocytes Percent Auto 8.3 % (2.6-8.5); Neutrophils Absolute Auto 3.1 K/mm3 (1.3-6.7); Neutrophils Percent Auto 75.3 % (45.5-73.1); Platelet Count Result 178 k/mm3 (150-375); Red Blood Count 3.15 M/mm3 (4.6-6.20); Red Cell Distribution Width 11.8 % (11.5-14.5); White Blood Count 4.1 K/mm3 (4.5-10.0)
[2024-06-16 13:23] LABS: Alanine Aminotransferase 20 U/L (6-50); Albumin Level 4.4 g/dL (3.5-5.1); Alkaline Phosphatase 72 U/L (38-126); Anion Gap 7 mmol/L (4-12); Aspartate Amino Transferase 25 U/L (17-59); Bilirubin,Total 1.4 mg/dL (0.2-1.3); Blood Urea Nitrogen 12 mg/dL (9-20); Calcium 9.2 mg/dL (8.4-10.2); Carbon Dioxide 25 mmol/L (22-30); Chloride 96 mmol/L (98-107); Estimated CRCL calculation 64 ml/min; Estimated Glomerular Filt Rate > 60; Glucose 108 mg/dL (65-110); Sodium 128 mmol/L (137-145)
[2024-06-16 13:25] LABS: Anisocytosis 1+; Platelet Estimate Adequate (Adequate)
[2024-06-16 13:26] LABS: Schistocytes None Seen
[2024-06-16 13:34] LABS: Troponin I < 0.012 ng/mL (0.000-0.034)
[2024-06-16 13:51] LABS: Influenza A QL RT-PCR Negative (Negative); Influenza B QL RT-PCR Negative (Negative); RSV RNA, RT-PCR Negative (Negative); SARS-CoV-2 RNA PCR Negative (Negative)
[2024-06-16 13:57] VITALS: BP 173/86; PULSE 91; RESP 17; O2SAT 100
[2024-06-16 14:23] LABS: Add Urine Microscopic? NO; Appearance Urine Clear (Clear); Bilirubin Urine Negative (Negative); Blood Urine Negative (Negative); Color Urine Yellow (Yellow); Glucose Urine UA Negative (Negative); Ketones Urine Negative (Negative); Leukocyte Esterase Ur Negative LEU/UL (Negative); Nitrate Urine Negative (Negative); Protein Urine Negative (Negative); Specific Grav Ur 1.009 (1.001-1.035); Urobilinogen Urine 0.2 mg/dL (<2.0); pH Urine 7.5 (5.0-9.0)
[2024-06-16] MEDS: LORazepam (*CRX) 0.5 MG TABLET PO (15:04)
[2024-06-16] MEDS: SODIUM CHLORIDE 0.9% IV 1,000 ML 999 ML IV CONT (15:04)
[2024-06-16 15:05] VITALS: BP 159/83; PULSE 76; RESP 19; O2SAT 96
[2024-06-16 15:05] LABS: Magnesium 2.1 mg/dL (1.6-2.3)
[2024-06-16 15:17] VITALS: BP 159/63
--- NOTE | 2024-06-16 16:23 | ED.RECABL ---
HPI - Recheck/Abnormal Lab/Rx General Chief Complaint: Recheck/Abnormal Lab/Rx Stated Complaint: high BP at home, jitters Time Seen by Provider: 06/16/24 13:55 Source: patient Mode of arrival: ambulatory Limitations: no limitations History of Present Illness HPI narrative: Patient is an 84-year-old male who presents the ED with report of elevated blood pressures. Patient reports over the last several weeks he has been having elevated blood pressures. He does have history of hypertension and is ramipril 10mg daily. He notified his primary care doctor about this a couple of weeks ago and was advised to take the ramipril b.i.d.. He has been checking his blood pressures 3 times daily and keeping recording of this. He showed me this. Blood pressures range widely from 120s to 180s systolic. Patient reports today he has been having jitteriness. he states when this happens, his blood pressure increases. He reported having a headache around 1 month ago which was abnormal for him, otherwise denies persistent headaches. Denies dizziness, lightheadedness, chest pain, shortness breath, numbness or weakness. Related Data Home Medications Medication Instructions Recorded Confirmed finasteride 5 mg tablet 5 mg PO DAILY 04/29/20 12/22/23 ramipril 10 mg capsule 10 mg PO DAILY 04/29/20 12/22/23 simvastatin 40 mg tablet 40 mg PO DAILY 04/29/20 12/22/23 tamsulosin 0.4 mg capsule 0.4 mg PO DAILY 04/29/20 12/22/23 aspirin 81 mg tablet,delayed 81 mg PO DAILY 10/26/22 12/22/23 release (Adult Aspirin Regimen) tramadol 50 mg tablet 50 mg PO DAILY PRN 10/26/22 12/22/23 Allergies Allergy/AdvReac Type Severity Reaction Status Date / Time amoxicillin AdvReac Intermediate Itching Verified 05/15/24 11:13 Review of Systems Review of Systems: All systems reviewed & are unremarkable except as noted in HPI. All systems reviewed & are unremarkable except as noted in HPI and below PMFSH Past Medical History Medical History Anemia Arthritis BPH (benign prostatic hyperplasia) Cancer BCCA HEAD REMOVED History of pneumothorax HTN (hypertension) Hypercholesterolemia Surgical History Surgical History History of skin surgery Family History Family History Mother Cancer Father Cancer Social History Social History Smoking status: Former smoker Second hand tobacco smoke exposure: Yes Alcohol intake: current Substance use: never Substance use type: does not use Do You Feel Safe in your Home?: Yes Lack of Transportation: No Lack of Food: Never True Current Housing: I Have Housing Concerned About Future Housing: No Difficulty Paying Gas/Electric Bills: No Difficulty Paying for Meds: No Currently Unemployed: No Education: High School Diploma/GED Difficulty w/ Childcare or Family Care: No Living arrangements: with family Occupation/Education: retired 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 HEAD: Normocephalic, atraumatic. EYES: PERRL/EOMI, conjunctiva clear RESPIRATORY: Airway patent, respirations nonlabored. Clear to auscultation bilaterally, no rales, rhonchi, wheezing. CARDIOVASCULAR: Regular rate and rhythm without murmurs, rubs, or gallops. MUSCULOSKELETAL: Moves all extremities. No gross deformities. SKIN: Warm, dry, normal color. NEURO: A&O X3. Speech clear. Cranial nerves II-XII grossly intact. Steady gait. No ataxic movements. No focal deficits. PSYCHIATRIC: Mildly anxious appearing. Normal interaction. C
[2024-06-16 16:50] VITALS: BP 156/81; PULSE 83; RESP 18; TEMP 36.6; O2SAT 100
== END 2024-06-16 16:51 | disposition home or self-care (01) ==
PROVIDERS: Emergency Medicine; Emergency Provider Physician Assistant; PCP Nurse Practitioner Family
DX: I10 Essential (primary) hypertension (principal); Z20.822 Contact with and (suspected) exposure to COVID-19; E78.00 Pure hypercholesterolemia, unspecified; D64.9 Anemia, unspecified; N40.0 Benign prostatic hyperplasia without lower urinary tract symptoms; M19.90 Unspecified osteoarthritis, unspecified site; Z85.828 Personal history of other malignant neoplasm of skin; Z87.891 Personal history of nicotine dependence; Z79.82 Long term (current) use of aspirin; Z79.899 Other long term (current) drug therapy; R94.31 Abnormal electrocardiogram [ECG] [EKG]
CPT/HCPCS: 36415; 70450; 71046; 80053; 81003; 83735; 84443; 84484; 85025; 87637; 93005; 96360; 96361; 99284; A9270; J7030

== ENCOUNTER 2024-06-21 11:28 | Outpatient (CLI) | payer MEDICARE, OTHER, SELFPAY ==
[2024-06-21 12:42] LABS: Albumin Level 4.2 g/dL (3.5-5.1); Anion Gap 5 mmol/L (4-12); Blood Urea Nitrogen 14 mg/dL (9-20); Calcium 9.2 mg/dL (8.4-10.2); Carbon Dioxide 29 mmol/L (22-30); Chloride 96 mmol/L (98-107); Estimated Glomerular Filt Rate > 60; Glucose 97 mg/dL (65-110); Phosphorus 3.2 mg/dL (2.5-4.5); Potassium 4.3 mmol/L (3.4-5.0); Sodium 130 mmol/L (137-145)
== END 2024-06-21 11:29 | disposition home or self-care (01) ==
LOC: ANHLAB 11:30
PROVIDERS: PCP Nurse Practitioner Family; Visit Provider Internal Medicine Nephrology
DX: E87.1 Hypo-osmolality and hyponatremia (principal)
CPT/HCPCS: 36415; 80069

== ENCOUNTER 2024-08-01 15:11 | Outpatient (CLI) | payer MEDICARE, OTHER, SELFPAY ==
[2024-08-01 17:08] LABS: Anion Gap 3 mmol/L (4-12); Blood Urea Nitrogen 13 mg/dL (9-20); Calcium 9.1 mg/dL (8.4-10.2); Carbon Dioxide 30 mmol/L (22-30); Chloride 92 mmol/L (98-107); Estimated Glomerular Filt Rate > 60; Glucose 110 mg/dL (65-110); Potassium 4.3 mmol/L (3.4-5.0); Sodium 125 mmol/L (137-145)
[2024-08-01 17:36] LABS: Iron 109 ug/dL (49-181)
[2024-08-01 17:53] LABS: Percent Iron Saturation 32 % (20-50)
[2024-08-01 18:15] LABS: Folic Acid > 20.0 ng/mL (2.76->20); Vitamin B12 > 1000.0 pg/mL (239-931)
[2024-08-02 15:49] LABS: Basophils Percent Auto 0.4 % (0.2-1.2); Eosinophils Percent Auto 0.8 % (0-4.4); Hemoglobin 11.3 g/dL (14.0-18.0); Immature Granulocyte Absolute 0.02 K/mm3 (0.00-0.031); Immature Granulocyte Percent A 0.4 % (0-0.5); Lymphocytes Absolute Auto 0.89 K/mm3 (0.9-3.2); Lymphocytes Percent Auto 17.6 % (18.3-44.2); Mean Corpuscular HGB Conc 35.3 g/dl (32-36); Mean Corpuscular Hemoglobin 37.9 pg (26-34); Mean Corpuscular Volume 107.4 fl (80-100); Mean Platelet Volume 7.9 fl (7.4-10.4); Monocytes Absolute Auto 0.4 K/mm3 (0.1-0.6); Monocytes Percent Auto 8.7 % (2.6-8.5); Neutrophils Absolute Auto 3.6 K/mm3 (1.3-6.7); Neutrophils Percent Auto 72.1 % (45.5-73.1); Platelet Count Result 161 k/mm3 (150-375); Red Blood Count 2.98 M/mm3 (4.6-6.20); Red Cell Distribution Width 11.4 % (11.5-14.5); White Blood Count 5.1 K/mm3 (4.5-10.0)
== END 2024-08-01 15:12 | disposition home or self-care (01) ==
LOC: ANHLAB 15:12
PROVIDERS: PCP Nurse Practitioner Family; Visit Provider Internal Medicine Hematology & Oncology
DX: D64.9 Anemia, unspecified (principal)
CPT/HCPCS: 36415; 80048; 82607; 82728; 82746; 83540; 83550; 85025

== ENCOUNTER 2024-08-05 11:16 | Emergency (ER) | payer MEDICARE, OTHER, SELFPAY ==
[2024-08-05 11:21] VITALS: BP 176/82; PULSE 83; RESP 16; TEMP 36.6; O2SAT 98
--- NOTE | 2024-08-05 13:51 | ECG_ITS ---
Test Date: 2024-08-05 14:12:23 Measurements Intervals [place] Rate: 76 P: 47 PA: 164 QRS: -19 QRSD: 88 T: 67 QT: 361 QTc: 406 Interpretive Statements SINUS RHYTHM Compared to ECG 06/16/2024 12:56:36 Myocardial infarct finding no longer present Electronically Signed On 08-06-2024 14:46:55 [employer] by Miquel Villalba M.D.
[2024-08-05 16:12] LABS: Basophils Percent Auto 0.5 % (0.2-1.2); Eosinophils Percent Auto 0.2 % (0-4.4); Hematocrit 31.2 % (42.0-52.0); Hemoglobin 11.4 g/dL (14.0-18.0); Immature Granulocyte Absolute 0.01 K/mm3 (0.00-0.031); Immature Granulocyte Percent A 0.2 % (0-0.5); Lymphocytes Percent Auto 18.1 % (18.3-44.2); Mean Corpuscular HGB Conc 36.5 g/dl (32-36); Mean Corpuscular Hemoglobin 38.4 pg (26-34); Mean Corpuscular Volume 105.1 fl (80-100); Mean Platelet Volume 8.2 fl (7.4-10.4); Monocytes Absolute Auto 0.4 K/mm3 (0.1-0.6); Monocytes Percent Auto 9.3 % (2.6-8.5); Neutrophils Absolute Auto 3.2 K/mm3 (1.3-6.7); Neutrophils Percent Auto 71.7 % (45.5-73.1); Platelet Count Result 161 k/mm3 (150-375); Red Blood Count 2.97 M/mm3 (4.6-6.20); Red Cell Distribution Width 11.4 % (11.5-14.5); White Blood Count 4.4 K/mm3 (4.5-10.0)
[2024-08-05 16:15] LABS: Add Urine Microscopic? NO; Appearance Urine Clear (Clear); Bilirubin Urine Negative (Negative); Blood Urine Negative (Negative); Color Urine Yellow (Yellow); Glucose Urine UA Negative (Negative); Ketones Urine 2+ mg/dL (Negative); Leukocyte Esterase Ur Negative LEU/UL (Negative); Nitrate Urine Negative (Negative); Protein Urine Negative (Negative); Specific Grav Ur 1.015 (1.001-1.035); Urobilinogen Urine 0.2 mg/dL (<2.0)
[2024-08-05 16:22] LABS: Alanine Aminotransferase 17 U/L (6-50); Albumin Level 4.2 g/dL (3.5-5.1); Alkaline Phosphatase 70 U/L (38-126); Anion Gap 4 mmol/L (4-12); Aspartate Amino Transferase 26 U/L (17-59); Bilirubin,Total 1.6 mg/dL (0.2-1.3); Blood Urea Nitrogen 10 mg/dL (9-20); Calcium 8.9 mg/dL (8.4-10.2); Carbon Dioxide 24 mmol/L (22-30); Chloride 94 mmol/L (98-107); Estimated Glomerular Filt Rate > 60; Glucose 110 mg/dL (65-110); Potassium 4.2 mmol/L (3.4-5.0); Sodium 122 mmol/L (137-145)
[2024-08-05 16:40] LABS: Platelet Estimate Adequate (Adequate); Schistocytes None Seen
[2024-08-05 16:41] LABS: Macrocytosis 1+ (NORMAL)
[2024-08-05 17:05] VITALS: BP 183/96; PULSE 82; RESP 17; O2SAT 98
--- NOTE | 2024-08-05 18:16 | ED_ITS ---
HPI - Recheck/Abnormal Lab/Rx General Chief Complaint: Recheck/Abnormal Lab/Rx Stated Complaint: low NA Time Seen by Provider: 08/05/24 18:04 History of Present Illness HPI narrative: 84-year-old male with a history of CKD, hypertension, hyponatremia presenting with concerns for hyponatremia. States that he struggles with a lot of anxiety and it has been particularly bad since finding out that his family is coming to visit on [place] at the end of this month. Feels very jittery. His PCP recently started him on sertraline for anxiety. He saw his social services analyst a few days ago who told him his sodium was low and that may contribute to the anxiety. States he became increasingly nervous about it so he wanted to come get checked out. Other than baseline anxiety, he denies any complaints. Related Data Home Medications ?Medication ?Instructions ?Recorded ?Confirmed ?Last Taken ?Type finasteride 5 mg tablet 5 mg PO DAILY 04/29/20 12/22/23 05/09/20 22:00 History ramipril 10 mg capsule 10 mg PO DAILY 04/29/20 12/22/23 05/09/20 22:00 History simvastatin 40 mg tablet 40 mg PO DAILY 04/29/20 12/22/23 05/09/20 22:00 History tamsulosin 0.4 mg capsule 0.4 mg PO DAILY 04/29/20 12/22/23 05/09/20 22:00 History aspirin 81 mg tablet,delayed 81 mg PO DAILY 10/26/22 12/22/23 Unknown History release (Adult Aspirin Regimen) tramadol 50 mg tablet 50 mg PO DAILY PRN 10/26/22 12/22/23 Unknown History Allergies Allergy/AdvReac Type Severity Reaction Status Date / Time amoxicillin AdvReac Intermediate Itching Verified 05/15/24 11:13 Review of Systems 2 Review of Systems: All systems reviewed & are unremarkable except as noted in HPI and below PMFSH Past Medical History Medical History Anemia Arthritis BPH (benign prostatic hyperplasia) Cancer BCCA HEAD REMOVED History of pneumothorax HTN (hypertension) Hypercholesterolemia Surgical History Surgical History History of skin surgery Family History Family History Mother Cancer Father Cancer Social History Social History Smoking status: Former smoker Second hand tobacco smoke exposure: Yes Alcohol intake: current Substance use: never Substance use type: does not use Do You Feel Safe in your Home?: Yes Lack of Transportation: No Lack of Food: Never True Current Housing: I Have Housing Concerned About Future Housing: No Difficulty Paying Gas/Electric Bills: No Difficulty Paying for Meds: No Currently Unemployed: No Education: High School Diploma/GED Difficulty w/ Childcare or Family Care: No Living arrangements: with family Occupation/Education: retired 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 HEAD: Normocephalic, atraumatic. EYES: PERRLA and EOMI. ENT: Mucous membranes moist. NECK: Supple. CHEST: No respiratory distress. HEART: Regular rate and rhythm ABDOMEN: Soft, nontender, nondistended EXTREMITIES: Normal range of motion SKIN: Warm, dry, no rash. NEURO: No focal deficits. Alert and oriented x3. PSYCH: Normal mood and affect. Course Vital Signs Vital signs: Vital Signs Temperature 97.8 F 08/05/24 11:21 Pulse Rate 83 08/05/24 11:21 Respiratory Rate 16 08/05/24 11:21 Blood Pressure 176/82 H 08/05/24 11:21 Pulse Oximetry 98 08/05/24 11:21 Oxygen Delivery Room Air 08/05/24 11:21 Temperature 98.1 F 08/05/24 19:25 Pulse Rate 63 08/05/24 19:25 Respiratory Rate 15 08/05/24 19:25 Blood Pressure 173/84 H 08/05/24 19:25 Pulse Oximetry 100 08/05/24 19:25 Oxygen Delivery Room Air 08/05/24 11:21 MDM - Recheck/Abnormal Lab/Rx MDM Narrative Medical decision making narrative: 84-year-old male presenting with concerns for low sodium. Vitals are Stable. Exam remarkable for the above. blood work with a sodium of 122. It was 125 earlier this week. He denies any significant complaints. States that he is eating and drinking normally. States that he just needs to get checked out but he will not stay in the hospital as he needs to get home.Denies any new medication changes other than the sertraline which was started several days ago. Suspect it may be related to this. Spoke with Nephrology who agrees with discontinuing sertraline. Patient states that he has only been taking it for a few days, so I advised he can stop it cold turkey. Advised close PCP follow-up for repeat blood work to ensure improvement. Discussed appropriate return precautions. Discharged in stable condition. Differential Diagnosis Differential diagnosis: Likely other (Electrolyte derangement, medication side effect) Medical Records Attestation: I reviewed the patient's medical records. Lab Data Attestation: I reviewed the patient's lab results. 08/05/24 16:02 08/05/24 16:02 Labs: Lab Results 08/05/24 Range/Units 16:02 WBC 4.4 L (4.5-10.0) K/mm3 RBC 2.97 L (4.6-6.20) M/mm3 Hgb 11.4 L (14.0-18.0) g/dL Hct 31.2 L (42.0-52.0) % MCV 105.1 H (80-100) fl MCH 38.4 H (26-34) pg MCHC 36.5 H (32-36) g/dl RDW 11.4 L (11.5-14.5) % Plt Count 161 (150-375) k/mm3 MPV 8.2 (7.4-10.4) fl Immature Gran % (Auto) 0.2 (0-0.5) % Neut % (Auto) 71.7 (45.5-73.1) % Lymph % (Auto) 18.1 L (18.3-44.2) % [place] % (Auto) 9.3 H (2.6-8.5) % Eos % (Auto) 0.2 (0-4.4) % Baso % (Auto) 0.5 (0.2-1.2) % Lymph # (Auto) 0.80 L (0.9-3.2) K/mm3 [place] # (Auto) 0.4 (0.1-0.6) K/mm3 Eos # (Auto) 0.0 (0-0.3) K/mm3 Baso # (Auto) 0.0 (0.0-0.1) K/mm3 Abs Immat Gran (auto) 0.01 (0.00-0.031) K/mm3 Absolute Neuts (auto) 3.2 (1.3-6.7) K/mm3 Absolute Nucleated RBC 0.000 (0.0-0.012) K/mm3 Nucleated RBC % 0.0 (0.0-0.2) % Platelet Estimate Adequate (Adequate) Macrocytosis 1+ (NORMAL) Schistocytes None seen Sodium 122 L (137-145) mmol/L Potassium 4.2 (3.4-5.0) mmol/L Chloride 94 L (98-107) mmol/L Carbon Dioxide 24 (22-30) mmol/L Anion Gap 4 (4-12) mmol/L BUN 10 (9-20) mg/dL Creatinine 0.70 (0.7-1.3) mg/dL Estim Creat Clear Calc Not Reportable Estimated GFR > 60 (59 - ) Glucose 110 (65-110) mg/dL Calcium 8.9 (8.4-10.2) mg/dL Total Bilirubin 1.6 H (0.2-1.3) mg/dL AST 26 (17-59) U/L ALT 17 (6-50) U/L Alkaline Phosphatase 70 (38-126) U/L Total Protein 7.0 (6.3-8.2) g/dL Albumin 4.2 (3.5-5.1) g/dL Urine Color Yellow (Yellow) Urine Appearance Clear (Clear) Urine pH 8.0 (5.0-9.0) Ur Specific [place] 1.015 (1.001-1.035) Urine Protein Negative (Negative) mg/dL Urine Glucose (UA) Negative (Negative) mg/dL Urine Ketones 2+ H (Negative) mg/dL Ur Blood (Man) Negative (Negative) Urine Nitrate Negative (Negative) Urine Bilirubin Negative (Negative) Urine Urobilinogen 0.2 (<2.0) mg/dL Leukocyte Esterase Rfl Negative (Negative) SHAWN/UL Critical Care Time Critical Care Time Critical Care Time: No Discharge Plan Discharge Clinical Impression: Hyponatremia, Anxiety Patient Disposition: Home, Self-Care Condition: Stable Instructions: Antibiotic Form, Hyponatremia (ED), Anxiety (ED) Additional Instructions: Please stop taking your sertraline as we think that this is contributing to your low-sodium. Follow-up closely with your PCP. If your symptoms worsen or other concerning symptoms arise, please return to the ER. Patient Language: Georgian Prescriptions: No Action aspirin [Adult Aspirin Regimen] 81 mg tablet,delayed release (DR/EC) 81 mg PO DAILY tramadol 50 mg tablet 50 mg PO DAILY PRN simvastatin 40 mg tablet 40 mg PO DAILY tamsulosin 0.4 mg capsule 0.4 mg PO DAILY finasteride 5 mg tablet 5 mg PO DAILY ramipril 10 mg capsule 10 mg PO DAILY lorazepam [Ativan] 0.5 mg tablet 0.5 mg PO DAILY PRN (Reason: anxiety) Qty: 5 0RF Follow-up/Referrals: Sabra,Jossie Suárez, [employer] [Primary Care Provider] -
[2024-08-05 19:25] VITALS: BP 173/84; PULSE 63; RESP 15; TEMP 36.7; O2SAT 100
== END 2024-08-05 19:25 | disposition home or self-care (01) ==
PROVIDERS: Emergency Provider Emergency Medicine; PCP Nurse Practitioner Family
DX: E87.1 Hypo-osmolality and hyponatremia (principal); F41.9 Anxiety disorder, unspecified; I12.9 Hypertensive chronic kidney disease with stage 1 through stage 4 chronic kidney disease, or unspecified chronic kidney disease; N18.9 Chronic kidney disease, unspecified; E78.00 Pure hypercholesterolemia, unspecified; N40.0 Benign prostatic hyperplasia without lower urinary tract symptoms; Z85.828 Personal history of other malignant neoplasm of skin; Z87.891 Personal history of nicotine dependence
CPT/HCPCS: 36415; 80053; 81003; 85025; 93005; 99283

== ENCOUNTER 2024-08-28 11:44 | Outpatient (CLI) | payer MEDICARE, OTHER, SELFPAY ==
[2024-08-28 12:14] LABS: Anion Gap -1 mmol/L (4-12); Blood Urea Nitrogen 14 mg/dL (9-20); Calcium 9.1 mg/dL (8.4-10.2); Carbon Dioxide 30 mmol/L (22-30); Chloride 100 mmol/L (98-107); Estimated Glomerular Filt Rate > 60; Glucose 96 mg/dL (65-110); Potassium 4.5 mmol/L (3.4-5.0); Sodium 129 mmol/L (137-145)
== END 2024-08-28 11:45 | disposition home or self-care (01) ==
LOC: ANHLAB 11:45
PROVIDERS: PCP Nurse Practitioner Family; Visit Provider Internal Medicine Nephrology
DX: E87.1 Hypo-osmolality and hyponatremia (principal)
CPT/HCPCS: 36415; 80048

== ENCOUNTER 2024-12-13 10:42 | Outpatient (CLI) | payer MEDICARE, OTHER, SELFPAY ==
[2024-12-13 11:28] LABS: Albumin Level 4.2 g/dL (3.5-5.1); Anion Gap 7 mmol/L (4-12); Blood Urea Nitrogen 16 mg/dL (9-20); Calcium 9.1 mg/dL (8.4-10.2); Carbon Dioxide 27 mmol/L (22-30); Chloride 100 mmol/L (98-107); Estimated Glomerular Filt Rate > 60; Glucose 88 mg/dL (65-110); Phosphorus 3.1 mg/dL (2.5-4.5); Potassium 4.4 mmol/L (3.4-5.0); Sodium 134 mmol/L (137-145)
--- OUTSIDE RECORDS SUMMARY | 2024-12-13 12:01 | XMS_ITS | Encounter Summary ---
Author Organization [facility] Address [address] [place] [address] Care Team Providers Care Economic Consultant Name Role Phone Maykel Rubin MD Primary Care Provider [phone] Encounter Details Date Type Department Care Team (Late st Contact Info) Description 04/13/2023 Lab Requisition [facility] - Derm[facility] Lab [address] [place] [address] 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 Gender Identity Not on file Sexual Orientation Not on file documented as of this encounter Plan of Treatment Not on file documented as of this encounter Procedures Procedure Name Priority Date/Time Associated Diagnosis Comments DERMATOPATHOLOGY Routine 04/13/2023 12:0 0 AM CDT Neoplasm of uncertain behavior of skin documented in this encounter Results * DERMATOPATHOLOGY (04/13/2023 12:00 AM CDT) Case Report Dermatopathology Report Case: [id number] Authorizing Provider: Manjit Gomes MD Collected: 04/13/2023 12:00 AM Ordering Location: [facility] Lab Received: 04/14/2023 01:06 PM Pathologist: Yusra Fox MD Specimens: A) - Skin, right upper forehead B) - Skin, right parietal scalp 3:07 PM CDT DERMATOPATHOLOGY LABORATORY Final Diagnosis Specimen A. 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 Actinic Keratosis 3:07 PM T DERMATOPATHOLOGY LABORATORY Gross Description Specimen A: Received is one formalin filled container labeled with the patient's name and designated right upper forehead. The specimen consists of a shave biopsy measuring 5x4x1 mm. Jar 0. Specimen B: Received is one formalin filled container labeled with the patient's name and designated right parietal scalp. The specimen consists of a shave biopsy measuring 6x5x1 mm. Jar 0. 3:07 PM T DERMATOPATHOLOGY LABORATORY Microscopic Description Specimen A. SKIN, right upper forehead: Sections show skin with irregularly shaped nests of keratinocytes with evidence of cornification. In some nests, there is loss of cohesion between the neoplastic cells, as well as individual dyskeratotic cells that lack intercellular bridges. Specimen B. SKIN, right parietal scalp: The epidermis shows parakeratosis, full thickness disorderly maturation of keratinocytes, mitoses at different levels, and dyskeratotic cells. 3:07 PM T DERMATOPATHOLOGY LABORATORY Disclaimer An external and internal positive and negative controls are appropriate for the histochemical, immunohistochemical and immunofluorescence stain(s) in this case (if any), except where stated explicitly. The performance characteristics of the stain(s) cited in this report were developed and its performance characteristic determined by the Dermatopathology Laboratory at [facility], directed by Dr. Jose Armando Mckenzie. These tests need not be, and therefore are not, approved by the [place] Food and Drug Administration. The tests are used for clinical purposes. Billing Codes Specimen Charges Stain Charges 03121 [id number] 1 1 3:07 PM CDT DERMATOPATHOLOGY LABORATORY Embedded Images 3:07 PM CDT DERMATOPATHOLOGY LABORATORY Pathology/Cytology TISSUE SPECIMEN FROM SKIN / Unknown 04/13/2023 04/14/2023 1:06 PM CDT Miscellaneous samples (specimen) TISSUE SPECIMEN FROM SKIN / Unknown 04/13/2023 04/14/2023 1:06 PM CDT Manjit Gomes MD LAB - PATHOLOGY/CYTOLOGY [place] Final Result DERMATOPATHOLOGY LABORATORY [facility] - Department of Dermatology [facility] Medicine [address] [place] [address], [address] [phone] documented in this encounter Visit Diagnoses Diagnosis Neoplasm of uncertain behavior of skin documented in this encounter Care Teams Economic Consultant Relationship Specialty Start Date End Date Maykel Rubin MD PCP - General 07/10/09 documented as of this encounter
--- OUTSIDE RECORDS SUMMARY | 2024-12-13 12:01 | XMS_ITS | CONTINUITY OF CARE DOCUMENT ---
Author Name rob rivas Address Unknown Organization [facility] Address [address] [place] [address] Phone [phone] Care Team Providers Care Petrol Tanker Driver Name Role Phone Howie GONZALEZ, Valentine Unavailable PILY FUENTES MD Unavailable PILY FUENTES MD Unavailable [phone] INSURANCE PROVIDERS Payer name Policy type / Coverage type [place] [employer] Other 1 [id number] [employer]IC[employer] Medicare [id number]
--- OUTSIDE RECORDS SUMMARY | 2024-12-13 12:01 | XMS_ITS | Referral Summary ---
Author Organization [facility] Address [address] [place] [place] [address] Phone Care Team Providers Care Service Attendant Name Role Phone Leo Livingston MD Unavailable [phone] 40 Christiano York MD Unavailable [phone] Kwan Prado MD Unavailable [phone] Augusto Johnson MD Unavailable [phone] Jossie Montaño NP Primary Care Provider [phone] Encounters Date Type Department Care Team Description 10/09/2024 8:07 AM MOLD YARD CRANE OPERATOR - 10/09/2024 11:59 PM MOLD YARD CRANE OPERATOR [place] [address] Vitamin D deficiency; Neuropathy; B12 deficiency; Essential hypertension Discharge Disposition: Discharge to home or self care 10/09/2024 8:00 AM MOLD YARD CRANE OPERATOR Lab [facility] Outpatient Lab at [address] [address] Hyperlipidemia (Primary Dx) 09/25/2024 Telephone [facility] Primary Care at [address] [address] Jossie Montaño NP 09/20/2024 Orders Only [facility] Primary Care at [address] [address] Jossie Montaño NP 09/20/2024 Telephone [facility] Primary Care at [address] [address] Jossie Montaño NP Test Results (X-ray) 09/20/2024 Orders Only [facility] at [address] [place] [id number] Ranjith Lopez MD Bilateral carotid artery stenosis (Primary Dx) 09/20/2024 9:15 AM MOLD YARD CRANE OPERATOR Office Visit [facility] at [address] [place] [phone] Ranjith Lopez MD Stenosis of right carotid artery (Primary Dx); Mixed hyperlipidemia; Essential hypertension 09/19/2024 12:30 PM MOLD YARD CRANE OPERATOR Ancillary Procedure [facility] Imaging at [address] [phone] Rib pain on left side 09/19/2024 11:30 AM MOLD YARD CRANE OPERATOR Office Visit [facility] Primary Care at [address] [phone] Jossie Montaño NP Essential hypertension (Primary Dx); Neuropathy; Rib pain on left side; B12 deficiency; Vitamin D deficiency from Last 3 Months Allergies Active Allergy Reactions Criticality Noted Date Comments Amoxicillin Diarrhea,Rash Medium 02/03/2024 Medications aspirin 81 mg enteric coated tablet Take 1 tablet (81 mg total) by mouth daily Active glucosamine sulfate 500 mg capsule Take 1,000 mg by mouth daily Active garlic 100 mg tablet Take by mouth Active xvucskx-uzzs-zaeeg-oreg -capryl 100 mg-150 mg- 50 mg-150 mg capsule Take by mouth Active coenzyme Q10 100 mg capsule Take 1 capsule (100 mg total) by mouth daily Active Bifidobacterium infantis (ALIGN ORAL)Indications:chroni c constipation Take 1 tablet by mouth daily Active traMADoL (ULTRAM) 50 mg tabletIndications:Spond ylosis without myelopathy or radiculopathy, lumbar region,Chronic bilateral low back pain without sciatica Take 1 tablet (50 mg total) by mouth every 12 (twelve) hours as needed for pain 60 tablet 024 Active hydrOXYzine (ATARAX) 25 mg tablet Take 1 tablet (25 mg total) by mouth nightly as needed for anxiety (sleep) 30 tablet 1 024 Active Additional Information Patient not taking.Reported on 09/20/2024 blood pressure monitor (Blood Pressure Kit) kitIndications:Essentia l hypertension Take blood pressure once daily 1 kit Active felodipine (PLENDIL) 2.5 mg 24 hr tablet Take 1 tablet (2.5 mg total) by mouth daily 90 tablet 1 025 Active finasteride (PROSCAR) 5 mg tablet Take 1 tablet (5 mg total) by mouth daily 100 tablet 4 025 Active ramipriL (ALTACE) 10 mg capsuleIndications:Esse ntial hypertension Take 1 capsule (10 mg total) by mouth 2 (two) times a day 180 capsule 1 025 Active tamsulosin (FLOMAX) 0.4 mg extended release capsuleIndications:OAB (overactive bladder) TAKE 1 CAPSULE EVERY DAY AFTER DINNER 90 capsule 3 025 Active simvastatin (ZOCOR) 40 mg tabletIndications:Coron crystal artery disease involving three affiliated coronary artery of three affiliated heart without angina pectoris,Stenosis of right carotid artery,Pure hypercholesterolemia TAKE 1 TABLET EVERY NIGHT 90 tablet 3 025 Active Active Problems Problem Noted Date Diagnosed Date Anxiety 08/17/2024 Assessment & Plan (08/17/2024 2:24 PM MOLD YARD CRANE OPERATOR): Patient states symptoms are stable at this time. He does not wish to initiate any further medication for anxiety. He feels like he is doing okay without medication Hyponatremia 08/17/2024 Assessment & Plan (08/17/2024 2:25 PM MOLD YARD CRANE OPERATOR): Improved. He has discontinued the sertraline. He saw his data control clerk supervisor this morning. Patient is feeling better Neuropathy 03/30/2024 Assessment & Plan (09/19/2024 2:13 PM MOLD YARD CRANE OPERATOR): Labs ordered Assessment & Plan (03/30/2024 5:46 PM CDT): Mild symptoms in his toes. Monitor. Check thyroid level. B12 level is being monitored by his oncologist. Patient denies radicular symptoms. Diastasis recti 03/30/2024 Assessment & Plan (03/30/2024 5:46 PM CDT): Acute. Reviewed diagnosis. Monitor. OAB (overactive bladder) 03/30/2024 Assessment & Plan (03/30/2024 5:47 PM CDT): Chronic. Reports this is improved some with tamsulosin and finasteride. Patient reports he only has minimal BPH and has seen Urology yearly for monitoring. 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 Struggles at times with his back and buttock pain. Has seen pain management in his planning some targeted injections. Last PCP had him on sparing use of tramadol. He is requesting a refill. He was getting 60 tabs a month but has not actually filled it since July. We will go ahead and great refill for cautious use. If needing more frequently then we should put on a controlled substance agreement or defer management to his pain management physician that he recently established with Chronic bilateral low back pain without sciatica 03/30/2024 Assessment & Plan (03/30/2024 5:47 PM CDT): Chronic. Okay for cautious use of tramadol. If needing regularly then we will have to put on a controlled substance agreement. 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 It could have shrunk due to the chronic use of finasteride. Sees urology. Continue finasteride and tamsulosin if it helps with his symptoms of incomplete emptying and bladder frequency Chronic idiopathic constipation 12/30/2022 Assessment & Plan (03/30/2024 5:45 PM CDT): Chronic. Reports improved with probiotic align. Continue. Monitor Hyperlipidemia 02/21/2020 Assessment & Plan (09/25/2024 11:12 AM MOLD YARD CRANE OPERATOR): Stable continue simvastatin Assessment & Plan (03/30/2024 5:45 PM CDT): Chronic. Denies chest pain or palpitations. Continue ASA and simvastatin. We will get updated cholesterol level. Targeting an LDL goal of a least less than 70 with optimal less than 55. If LDL is not at goal then we will consider changing simvastatin to something stronger like rosuvastatin 20 or 40 mg a day. Patient remotely had been on atorvastatin but they changed him to simvastatin but he is not sure why Essential hypertension 02/21/2020 Assessment & Plan (09/25/2024 11:12 AM MOLD YARD CRANE OPERATOR): Stable continue ramipril Assessment & Plan (09/19/2024 2:13 PM MOLD YARD CRANE OPERATOR): Home BP's much improved, ranging 130's/60's the majority of the time with normal pulse. Elevated in office but pt also feeling pain, has appt with pain management this afternoon. Will have pt send home bp's in 1 week. Assessment & Plan (08/01/2024 2:16 PM MOLD YARD CRANE OPERATOR): Home BP's not at goal, ranging 150-160's systolic In office his home BP machine is running higher than ours, manual in office 140/60. Patient states he gets symptomatic when BP is running high at home. Will add in low dose Felodipine (2.5 mg). Patient to send in home BP's in 1 week, discussed side effects of hypotension and symptoms to be mindful of. Assessment & Plan (06/19/2024 2:57 PM CDT): BP in office is fine, home BP's are elevated. We compared pt's home BP cuff/machine with our BP in office and there was a big discrepancy. Will continue with Ramipril 10 mg BID, pt to continue to monitor home BP's but he will either get new BP machine or go to pharmacy and use their machine. Assessment & Plan (03/30/2024 5:45 PM CDT): Chronic. Blood pressure is controlled. Continue ramipril. Encouraged healthy diet and lifestyle Carotid artery stenosis 02/21/2020 Assessment & Plan (09/25/2024 11:12 AM MOLD YARD CRANE OPERATOR): Asymptomatic severe greater than 70% right ICA stenosis, overall less than 80%. Discussed findings with the patient, with recommendation for ongoing surveillance. Continue ASA and statin therapy. Follow up in 6 months repeat carotid duplex. Assessment & Plan (03/30/2024 5:45 PM CDT): Chronic, right. Trying to medically manage with aspirin and cholesterol medication. We will get records from last PCP and get updated cholesterol level. Targeting LDL least less than 70 with optimal less than 50 5 May need to consider change to a high-intensity statin if LDL is not at goal Coronary artery disease invo lving three affiliated coronary artery of three affiliated heart without angina pectoris 11/14/2019 Assessment & Plan (03/30/2024 5:45 PM CDT): Chronic. Denies chest pain or palpitations. Continue ASA and simvastatin. We will get updated cholesterol level. Targeting an LDL goal of a least less than 70 with optimal less than 55. If LDL is not at goal then we will consider changing simvastatin to something stronger like rosuvastatin 20 or 40 mg a day. Patient remotely had been on atorvastatin but they changed him to simvastatin but he is not sure why Anemia, macrocytic 02/21/2018 Assessment & Plan (03/30/2024 5:44 PM CDT): Chronic macrocytosis with slight anemia. Following with Hematology/Oncology at [facility]. Could be very subtle version of myelodysplastic syndrome but no definitive diagnosis. They are monitoring with lab work every 6 months. Denies any significant anemia or symptoms Resolved Problems Problem Noted Date Diagnosed Date Resolved Date Abdominal aortic aneurysm 12/29/2022 Overview (03/30/2024): 3.4 cm on 12/28/22 lumbar films Immunizations Immunization Administration Dates Next Due Influenza, Quadrivalent, Hig h Dose, Preservative Free, Intrr 06/11/2022,06/30/2021,06/10/2020 Influenza, Quadrivalent, Spl it, Preservative Free, Intramuscular 07/03/2015 Influenza, Trivalent, High D ose, Split, Preservative Free, Intramuscular 06/20/2024,06/20/2019,06/20/2018,06/10,06/29/2016 Influenza, Unspecified 08/30/2023(Deferr ed: Patient Refused),08/30/2022(Deferred: Patient Refused),06/24/2017,06/24/2016, 015 Pneumococcal Conjugate PCV 13 06/29/2016 Pneumococcal Conjugate, Unspecified 06/24/2016 Social History Tobacco Use Types Packs/Day Years Used Date Smoking Tobacco: Former Cigarettes 0.8 4 1 - 1965 Smokeless Tobacco: Never Tobacco Cessation:Counseling Given: Not Answered Comments:1964 Alcohol Use Standard Drinks/Week Comments Yes 0 (1 standard drink = 0.6 oz pur e alcohol) AUDIT-C Answer Date Recorded Q1: How often do you have a drink containing alc ohol? 2-4 times a month 03/30/2024 Q2: How many drinks containi ng alcohol do you have on a typical day when you are drinking? 1 or 2 03/30/2024 Q3: How often do you have si x or more drinks on one occasion? Less than monthly 03/30/2024 PHQ-2 Answer Date Recorded PHQ-2 Total Score (If total score is 3 or more points, staff should administer the PHQ-9) 0 09/19/2024 PHQ-9 Answer Date Recorded PHQ-9 Total Score 2 03/30/2024 Sex and Gender Information Value Date Recorded Sex Assigned at Not on file Legal Sex Male 6:23 AM MOLD YARD CRANE OPERATOR Gender Identity Male 02/22/2018 2:20 PM CDT Sexual Orientation Not on file Last Filed Vital Signs Vital Sign Reading Time Taken Comments Blood Pressure 188/92 09/20/2024 9:20 AM MOLD YARD CRANE OPERATOR Pulse 43 09/20/2024 9:20 AM MOLD YARD CRANE OPERATOR Temperature 37.2 C (98.9 F) 09/19/2024 11:37 AM MOLD YARD CRANE OPERATOR Respiratory Rate 18 08/14/2024 4:03 PM MOLD YARD CRANE OPERATOR Oxygen Saturation 96% 09/20/2024 9:20 AM MOLD YARD CRANE OPERATOR Inhaled Oxygen Concentration - - Weight 72.1 kg (159 lb) 09/20/2024 9:20 AM MOLD YARD CRANE OPERATOR Height 172.7 cm (5' 8 ) 09/20/2024 9:20 AM MOLD YARD CRANE OPERATOR Body Mass Index 24.18 09/20/2024 9:20 AM MOLD YARD CRANE OPERATOR Plan of Treatment Not on file Procedures Procedure Name Priority Date/Time Associated Diagnosis Comments EGFR Routine 10/09/2024 3:06 PM MOLD YARD CRANE OPERATOR Essential hypertension T4, FREE Routine 10/09/2024 3:06 PM MOLD YARD CRANE OPERATOR Essential hypertension DIFFERENTIAL AUTO Routine 10/09/2024 3:0 6 PM MOLD YARD CRANE OPERATOR Essential hypertension CBC WITH AUTO DIFFERENTIAL Routine 10/09/2024 3:06 PM MOLD YARD CRANE OPERATOR Essential hypertension COMPREHENSIVE METABOLIC PANEL Routine 10/09/2024 3:06 PM MOLD YARD CRANE OPERATOR Essential hypertension LIPID PANEL Routine 10/09/2024 3:06 PM MOLD YARD CRANE OPERATOR Essential hypertension THYROID FUNCTION CASCADE Routine 10/09/2024 3:06 PM MOLD YARD CRANE OPERATOR Essential hypertension VITAMIN B12 Routine 10/09/2024 3:06 PM MOLD YARD CRANE OPERATOR Neuropathy B12 deficiency VITAMIN D 25 HYDROXY Routine 10/09/2024 3:06 PM MOLD YARD CRANE OPERATOR Vitamin D deficiency XR RIBS BILATERAL 3 VIEWS Schedule Routine, Read Routine (OP Routine) 09/19/2024 12:32 PM MOLD YARD CRANE OPERATOR Rib pain on left side from Last 3 Months Results * eGFR (10/09/2024 3:06 PM MOLD YARD CRANE OPERATOR) eGFR 81 >=60 mL/min/1. 73 m2 Comment: Interpretive Data Reference Interval Normal >/= 90 mL/min/1.73m2 Mildly decreased* 60 - 89 mL/min/1.73m2 Mildly to moderately decreased 45 - 59 mL/min/1.73m2 Moderately to severely decreased 30 - 44 mL/min/1.73m2 Severely decreased 15 - 29 mL/min/1.73m2 Kidney Failure < 15 mL/min/1.73m2 *Relative to young adult level Estimated glomerular filtration rate is determined by the 2020 CKD-EPI equation recommended by the National Kidney Foundation (A Unifying Approach to GFR Estimation: Recommendations of the NKF-ASK Task Force on Reassessing the Inclusion of Race in Diagnosing Kidney Disease, JASN 2020). The CKD-EPI equation should not be used for patients with unstable renal function and has not been validated in children and those over 70. Current interpretive data was last reviewed 2021. Blood 10/09/2024 3:06 PM MOLD YARD CRANE OPERATOR 10/09/2024 8:14 PM MOLD YARD CRANE OPERATOR us Jossie Montaño NP LAB BLOOD ORDERABLES Final Resul t [facility] [address] Department [place] [address] * Differential, auto (10/09/2024 3:06 PM MOLD YARD CRANE OPERATOR) Neutrophil abs 3.1 1.5 - 6.5 K/cumm Imm gran abs 0.0 0.0 - 0.1 K/cumm [facility] Lymphocyte abs 1.0 0.8 - 3.3 K/cumm [facility] Monocyte abs 0.3 0.2 - 0.8 K/cumm [facility] Eosinophil abs 0.2 0.0 - 0.5 K/cumm [facility] Basophil abs 0.0 0.0 - 0.1 K/cumm [facility] Neutrophil pct 67.3 % [facility] Comment: Interpretive Data Percent cell count reference ranges are not reported, since discordance with absolute values may lead to misinterpretation of CBC data. Current Interpretive Data was last revised on 2017. Imm gran pct 0.2 % [facility] Comment: Interpretive Data Percent cell count reference ranges are not reported, since discordance with absolute values may lead to misinterpretation of CBC data. Current Interpretive Data was last revised on 2017. Lymphocyte pct 21.1 % [facility] Comment: Interpretive Data Percent cell count reference ranges are not reported, since discordance with absolute values may lead to misinterpretation of CBC data. Current Interpretive Data was last revised on 2017. Monocyte pct 6.8 % [facility] Comment: Interpretive Data Percent cell count reference ranges are not reported, since discordance with absolute values may lead to misinterpretation of CBC data. Current Interpretive Data was last revised on 2017. Eosinophil pct 3.9 % [facility] Comment: Interpretive Data Percent cell count reference ranges are not reported, since discordance with absolute values may lead to misinterpretation of CBC data. Current Interpretive Data was last revised on 2017. Basophil pct 0.7 % [facility] Comment: Interpretive Data Percent cell count reference ranges are not reported, since discordance with absolute values may lead to misinterpretation of CBC data. Current Interpretive Data was last revised on 2017. Blood 10/09/2024 3:06 PM MOLD YARD CRANE OPERATOR 10/09/2024 7:50 PM MOLD YARD CRANE OPERATOR us Jossie Montaño BUSINESS PERFORMANCE ADVISOR LAB BLOOD ORDERABLES Final Resul t Performing Organization Address [facility] Co de Phone Number [facility] [address] Department [place] [address] * (ABNORMAL) Thyroid Function Shirley (10/09/2024 3:06 PM MOLD YARD CRANE OPERATOR) Pathologist [facility] TSH 5.29(H) 0.30 - 4.20 mcIUnit/mL Blood 10/09/2024 3:06 PM MOLD YARD CRANE OPERATOR 10/09/2024 7:50 PM MOLD YARD CRANE OPERATOR us Jossie Montaño BUSINESS PERFORMANCE ADVISOR LAB BLOOD ORDERABLES Final Resul t Performing Organization Address [facility] Co de Phone Number [facility] [address] [address] Department of [employer] [place] [address] * (ABNORMAL) CBC with auto differential (10/09/2024 3:06 PM MOLD YARD CRANE OPERATOR) WBC 4.6 3.8 - 9.9 K/cumm Hgb 12.1(L) 13.0 - 17.5 g/dL [facility] Hct 37.5(L) 38.9 - 50.3 % [facility] Plt 194 150 - 400 K/cumm [facility] MPV 8.6(L) 9.1 - 12.3 fL [facility] RBC 3.23(L) 4.30 - 5.80 M/cumm [facility] MCV 116.1(H) 81.3 - 96.4 fL [facility] MCH 37.5(H) 27.1 - 33.3 pg [facility] MCHC 32.3 32.3 - 35.7 g/dL [facility] RDW CV 12.2 11.1 - 14.9 % [facility] RDW SD 52.3(H) 35.7 - 48.1 fL [facility] NRBC abs 0.00 0.00 - 0.01 K/cumm [facility] Blood 10/09/2024 3:06 PM MOLD YARD CRANE OPERATOR 10/09/2024 7:50 PM MOLD YARD CRANE OPERATOR us Jossie Montaño BUSINESS PERFORMANCE ADVISOR LAB BLOOD ORDERABLES Final Resul t Performing Organization Address [facility] de Phone Number [facility] [address] Department of [employer] [place] [address] * Vitamin D 25 hydroxy (10/09/2024 3:06 PM MOLD YARD CRANE OPERATOR) Pathologist [facility] Vitamin D 25-OH 34 30 - 80 ng/mL Blood 10/09/2024 3:06 PM MOLD YARD CRANE OPERATOR 10/09/2024 7:50 PM MOLD YARD CRANE OPERATOR us Jossie Montaño NP LAB BLOOD ORDERABLES Final Resul t Performing Organization Address [facility] de Phone Number [facility] [address] Department of [employer] [place] [address] * T4, free (10/09/2024 3:06 PM MOLD YARD CRANE OPERATOR) Free T4 0.97 0.90 - 1.70 ng/dL Blood 10/09/2024 3:06 PM MOLD YARD CRANE OPERATOR 10/09/2024 8:14 PM MOLD YARD CRANE OPERATOR us Jossie Montaño BUSINESS PERFORMANCE ADVISOR LAB BLOOD ORDERABLES Final Resul t Performing Organization Address City/[facility] de Phone Number [facility] TERRAZAS [address] Department [place] [address] * Vitamin B12 (10/09/2024 3:06 PM MOLD YARD CRANE OPERATOR) Vitamin B12 915 230 - 1,250 pg/mL Blood 10/09/2024 3:06 PM MOLD YARD CRANE OPERATOR 10/09/2024 7:50 PM MOLD YARD CRANE OPERATOR Jossie Montaño BUSINESS PERFORMANCE ADVISOR LAB BLOOD ORDERABLES Final Resul t Performing Organization Address City/[facility]/ZIP Co de Phone Number [facility] TERRAZAS [address] Department [place] [address] * Lipid panel (10/09/2024 3:06 PM MOLD YARD CRANE OPERATOR) Cholesterol 175 30 - 199 mg/dL Comment: Interpretive Data Ages < or = 19 years Acceptable: <170 mg/dL Borderline high: 170-199 mg/dL High: >or= 200 mg/dL Ages > or = 20 years Desirable: <200 mg/dL Borderline high: 200-239 mg/dL High: >or= 240 mg/dL Literature References: 1. Expert Panel on Integrated Guidelines for Cardiovascular Health and Risk Reduction in Children and Adolescents. Pediatrics 2011;128:S213 2. NCEP Expert Panel. Circulation 2004;110:227 Current Interpretive Data was last revised on 2018. Triglycerides 57 <=149 mg/dL [facility] Comment: Interpretive Data Ages < or = 9 years Acceptable: <75 mg/dL Borderline high: 75-99 mg/dL High: >or= 100 mg/dL Ages 10 to 20 years Acceptable: <90 mg/dL Borderline high: 90-129 mg/dL High: >or= 130 mg/dL Ages > or = 20 years Desirable: <150 mg/dL Borderline high: 150-199 mg/dL High: 200-499 mg/dL Very high: >or= 499 mg/dL Literature References: 1. Expert Panel on Integrated Guidelines for Cardiovascular Health and Risk Reduction in Children and Adolescents. Pediatrics 2011;128:S213 2. NCEP Expert Panel. Circulation 2004;110:227 Current Interpretive Data was last revised on 2018. HDL 101 >=40 mg/dL [facility] TERRAZAS Comment: Interpretive Data Ages < or = 19 years Acceptable: >45 mg/dL Borderline low: 40-45 mg/dL Low: <40 mg/dL Ages > or = 20 years Desirable: >or= 60 mg/dL Low: <40 mg/dL Literature References: 1. Expert Panel on Integrated Guidelines for Cardiovascular Health and Risk Reduction in Children and Adolescents. Pediatrics 2011;128:S213 2. NCEP Expert Panel. Circulation 2004;110:227 Current Interpretive Data was last revised on 2018. LDL, calculated 63 <=129 mg/dL [facility] TERRAZAS Comment: Interpretive Data Ages < or = 19 years Acceptable: <110 mg/dL Borderline high: 110-129 mg/dL High: >or= 130 mg/dL Ages > or = 20 years Optimal: <100 mg/dL Near optimal: 100-129 mg/dL Borderline high: 130-159 mg/dL High: >160 mg/dL Calculated using the Roscoe LDL-C estimating equation. This equation was implemented on 2024. Prior to this date LDL-C was estimated using the Friedewald equation. Literature References: 1. Expert Panel on Integrated Guidelines for Cardiovascular Health and Risk Reduction in Children and Adolescents. Pediatrics 2011;128:S213 2. NCEP Expert Panel. Circulation 2004;110:227 3. Roscoe Cedillo et al. CASEY Cardiol. 2020 December 28;5(5):540-548. doi: 10.1001/jamacardio.2020.0013 Current Interpretive Data was last revised on 2024. Non-HDL Cholesterol 74 mg/dL [facility] TERRAZAS Comment: Interpretive Data Ages < or = 19 years Acceptable: <120 mg/dL Borderline high: 120-144 mg/dL High: >145 mg/dL Ages > or = 20 years When triglycerides are >200 mg/dL, Non-HDL cholesterol is a secondary target of therapy with treatment goals that are 30 mg/dL greater than the LDL cholesterol target. Literature References: 1. Expert Panel on Integrated Guidelines for Cardiovascular Health and Risk Reduction in Children and Adolescents. Pediatrics 2011;128:S213 2. NCEP Expert Panel. Circulation 2004;110:227 Current Interpretive Data was last revised on 2018. Chol/HDL ratio 2 [facility] Blood 10/09/2024 3:06 PM MOLD YARD CRANE OPERATOR 10/09/2024 7:50 PM MOLD YARD CRANE OPERATOR us Jossie Montaño NP LAB BLOOD ORDERABLES Final Resul t [facility] [address] Department [place] [address] * Comprehensive metabolic panel (10/09/2024 3:06 PM MOLD YARD CRANE OPERATOR) Sodium 137 135 - 145 mmol/L Potassium, pl 4.2 3.3 - 4.9 mmol/L [facility] Chloride 102 97 - 110 mmol/L [facility] CO2 24 22 - 32 mmol/L [facility] Anion gap 11 2 - 15 mmol/L [facility] BUN 20 6 - 25 mg/dL [facility] Creatinine 0.93 0.80 - 1.30 mg/dL [facility] Glucose 111 70 - 199 mg/dL [facility] Comment: Interpretive Data Fasting glucose >/= 126 mg/dl is diagnostic for diabetes. Fasting is defined as no caloric intake for at least 8 hours. Fasting glucose between 100 mg/dl to 125 mg/dl is diagnostic of prediabetes. In a patient with classic symptoms of hyperglycemia or hyperglycemic crisis, a random glucose >/= 200 mg/dl is diagnostic for diabetes. In the absence of unequivocal hyperglycemia, results should be confirmed by repeat testing. The classification and Diagnosis of Diabetes Diabetes Care 2021; 46: S19-S40. Current interpretive data was last revised 2022. Calcium 9.5 8.5 - 10.3 mg/dL [facility] Bilirubin, total 0.9 0.1 - 1.2 mg/dL [facility] Protein, pl 7.0 6.5 - 8.5 g/dL [facility] Albumin 4.2 3.5 - 5.0 g/dL [facility] Alk phos 90 40 - 130 Units/L [facility] ALT 18 7 - 55 Units/L [facility] AST 25 10 - 50 Units/L [facility] Blood 10/09/2024 3:06 PM MOLD YARD CRANE OPERATOR 10/09/2024 7:50 PM MOLD YARD CRANE OPERATOR us Jossie Montaño BUSINESS PERFORMANCE ADVISOR LAB BLOOD ORDERABLES Final Resul t [facility] [address] [address] Department [place] [address] * XR Ribs Bilateral 3 Vw (09/19/2024 12:32 PM MOLD YARD CRANE OPERATOR) Anatomical Region Laterality Modality Rib, Chest Bilateral Digital Radiogra phy 09/20/2024 6:39 AM MOLD YARD CRANE OPERATOR Narrative 09/20/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 Collapsed right lung in 1968. Ex-smoker; quitting in the 60's. Smoked for a few years, socially TECHNIQUE: Two views each chest wall COMPARISON: None available FINDINGS: The posterior right 5th rib is absent. Healed fractures posterolateral 6th and 7th right ribs. Additional deformity right lateral chest wall appears chronic in nature. Left-sided ribs appear unremarkable without deformity or displacement. No demonstrated marked pleural thickening, effusion or pneumothorax. IMPRESSION: No acute chest wall abnormality. Multiple healed right-sided rib fractures as above. THIS IS AN ELECTRONICALLY VERIFIED FINAL REPORT 09/20/2024 6:42 AM - Electronically signed by Jamie Hough M.D. RB T: Report ID: [id number] Reading Location: [place] [address] Procedure Note Jamie Hough MD - 09/20/2024 EXAM DESCRIPTION: XR RIBS BILATERAL 3 VIEWS REASON FOR STUDY: left lateral rib pain x 1 week Pt complains of left lateral/posterior rib pain for one week. Collapsedright lung in 1968. Ex-smoker; quitting in the 60's. Smoked for a few years, socially TECHNIQUE: Two views each chest wall COMPARISON: None available FINDINGS: The posterior right 5th rib is absent. Healed fractures posterolateral 6th and 7th right ribs. Additional deformity right lateral chest wall appears chronic in nature. Left-sided ribs appear unremarkable without deformity or displacement. No demonstrated marked pleural thickening, effusion or pneumothorax. IMPRESSION: No acute chest wall abnormality. Multiple healed right-sided rib fractures as above. THIS IS AN ELECTRONICALLY VERIFIED FINAL REPORT 09/20/2024 6:42 AM - Electronically signed by Jamie Hough M.D. 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 XR PROCEDURES Final Result from Last 3 Months Insurance MEDICARE [employer] Member Subscriber Plan / Payer (Ef fective 2012-Present) Name:Freedom Palomino Relation to Subscriber:Self Name:Freedom Palomino Payer ID:[id number] Group ID:Not on file Type:COMMERCIAL Address: [facility] [address] [place], [place] MEDICARE RAILROAD [facility] Address: [facility] [id number] [place] [id number] [employer] Member Subscriber Plan / Payer ( fective 2012-Present) Name:Freedom Palomino Relation to Subscriber:Self Name:Freedom Palomino Payer ID:[id number] Group ID:[id number] Type:COMMERCIAL Address: [facility] [address] [place], [place] Care Teams Service Attendant Relationship Specialty Start Date End Date Jossie Montaño NP [address] [facility] [address] [place] [address] PCP - General Family Medicine 06/19/24 Leo Livingston MD [address] [place] [address] Referring Physician Hematology 03/30/24 Christiano York MD [address] [facility] [address] [place] [address] Consulting Physician Cardiology 03/30/24 Kwan Prado MD [address] [facility] [address] [place] [address] Consulting Physician Urology 03/30/24 Augusto Johnson MD [address] [facility] [address] [place] [address] Referring Physician Nephrology 03/30/24
--- OUTSIDE RECORDS SUMMARY | 2024-12-13 12:01 | XMS_ITS | Clinical Summary ---
Author Organization [facility] laura [facility] Address [address] [place] [address] Care Team Providers Care Presser Cotton Ginning Name Role Phone Unavailable Primary Care Provider Unavailabl e Allergies Active Allergy Reactions Criticality Noted Date Comments Amoxicillin Diarrhea,Rash Low 02/03/2024 Medications finasteride (PROSCAR) 5 mg tablet Take 5 mg by mouth daily. Active ramipriL (ALTACE) 10 mg capsule Take 10 mg by mouth daily. Active simvastatin (ZOCOR) 40 mg tablet Take 40 mg by mouth daily with supper. Active tamsulosin (FLOMAX) 0.4 mg capsule Take 0.4 mg by mouth daily. Active aspirin (ECOTRIN EC) 81 mg Tablet, Delayed Release (E.C.) Take 81 mg by mouth daily. Active traMADoL (ULTRAM) 50 mg tablet TAKE 1 TABLET BY MOUTH TWICE DAILY NEEDED 07/01/2022 Active glucosamine sulfate 500 mg Capsule Take 1,000 mg by mouth daily. Active omega-3 fatty acids-fish oil 300-1,000 mg Capsule Take by mouth daily. Active CALCIUM CITRATE ORAL Take by mouth. Active multivitamin (DAILY-JULIANE) tablet Take 1 Tablet by mouth daily. Active cyanocobalamin 1,000 mcg Tablet Take 1,000 mcg by mouth daily. Active Cholecalciferol, Vitamin D3, 50 mcg (2,000 unit) Capsule Take by mouth. Active magnesium citrate solution Take 296 mL by mouth one time only. Active esjbcvq-reao-qfj br-umwd-jnzgzl 100 mg-150 mg- 50 mg-150 mg Capsule Take by mouth. Active ascorbic acid, vitamin C, (VITAMIN C) 500 mg tablet Take 500 mg by mouth daily. Active Garlic 100 mg Tablet Take by mouth. Active coenzyme Q10 100 mg Capsule Take 100 mg by mouth daily. Active ARGININE, L-ARGININE, ORAL Take by mouth. Active B.animalis,bifid ,infantis,long (PROBIOTIC 4X ORAL) Take by mouth. Active sertraline (ZOLOFT) 25 mg tablet Take 25 mg by mouth daily. 07/24/2024 Active felodipine (PLENDIL) 2.5 mg Extended Release 24 hour tablet Take 2.5 mg by mouth daily. 08/01/2024 Active Active Problems Problem Noted Date Diagnosed Date Macrocytic anemia 05/21/2022 Encounters Date Type Department Care Team Description 11/15/2024 External Device Data [facility] ABSTRACTION Provider, Abstract 11/04/2024 External Device Data [facility] ABSTRACTION Provider, Abstract 11/03/2024 External Device Data [facility] ABSTRACTION Provider, Abstract 10/17/2024 External Device Data [facility] ABSTRACTION Provider, Abstract 09/20/2024 External Device Data [facility] ABSTRACTION Provider, Abstract 09/19/2024 External Device Data [facility] ABSTRACTION Provider, Abstract from Last 3 Months Family History Medical History Relation Name Comments Cancer Brother 1 Cancer Father Cancer Mother Relation Name Status Comments Brother 1 Brother 2 Alive Father Mother Sister Social History Tobacco Use Types Packs/Day Years Used Date Smoking Tobacco: Never Smokeless Tobacco: Never Tobacco Cessation:Counseling Given: Not Answered Alcohol Use Standard Drinks/Week Comments Yes 0 (1 standard drink = 0.6 oz pur e alcohol) Sex and Gender Information Value Date Recorded Sex Assigned at Not on file Legal Sex Male 2:28 PM CDT Gender Identity Not on file Sexual Orientation Not on file Last Filed Vital Signs Vital Sign Reading Time Taken Comments Blood Pressure 141/73 08/04/2024 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 Pulse 64 08/04/2024 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 Temperature 36.8 C (98.2 F) 08/04/2024 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 Respiratory Rate 16 08/04/2024 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 Oxygen Saturation 97% 08/04/2024 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 Inhaled Oxygen Concentration - - Weight 68.9 kg (152 lb) 08/04/2024 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 Height 172.7 cm (5' 8 ) 05/21/2022 1:18 PM CDT Body Mass Index 23.11 05/21/2022 1:18 PM CDT Plan of Treatment Upcoming Encounters Date Type Department Care Team (Late st Contact Info) Description 02/02/2025 10:45 AM CDT Office Visit [facility] Oncology and Hematology - [place] [address] [facility] [address] [place] [address] Leo Livingston MD [address] [facility] [address] [place] [address] Health Maintenance Due Date Last Done Comments DTAP/TDAP/TD VACCINES (1 - Tdap) 1960 ZOSTER VACCINE (1 of 2) 1991 RSV VACCINE (60+ or ) (1 - 1-dose 75+ series) 2016 PNEUMOCOCCAL VACCINE 50+ YEA RS (2 of 2 - PPSV23) 06/29/2017 06/29/2016, 06/24/2016 INFLUENZA VACCINE Completed 06/20/2024, , 06/30/2021, Additional history exists Insurance MEDICARE RAILROAD [facility]
--- OUTSIDE RECORDS SUMMARY | 2024-12-13 12:01 | XMS_ITS | Clinical Summary ---
Author Organization [facility] Address [address] [place] [address] Care Team Providers Care Blueprinter Name Role Phone Maykel Rubin MD Primary Care Provider [phone] Source Comments [facility],non-owned Affiliates and Associated Physician Practices is amultiple site organization consisting of ambulatory clinics and hospital sitesin [place], [place], [place] and [place]. This disclosure is being madepursuant to the Care Everywhere program and may not contain all information available regarding this patient. 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 Gender Identity Not on file Sexual Orientation Not on file Plan of Treatment Health Maintenance Due Date Last Done Comments MEDICARE AWV 12 MONTHS 1941 DTAP/TDAP/TD VACCINES (1 - Tdap) 1960 PNEUMOCOCCAL VACCINE 50+ (1 of 1 - PCV) 1991 ZOSTER VACCINE (1 of 2) 1991 Respiratory Syncytial Virus (RSV) Vaccine Pt: or over 60 yrs (1 - 1-dose 75+ series) 2016 COVID-19 VACCINE ( - 2023-2 5 season) 2024 DEPRESSION SCREENING 08/30/2024 INFLUENZA VACCINE (Season Ended) 2025 HEPATITIS B VACCINE Aged Out No longe r eligible based on patient's age to complete this topic HIB VACCINE Aged Out No longer eligi ble based on patient's age to complete this topic HPV VACCINE Aged Out No longer eligi ble based on patient's age to complete this topic MENINGOCOCCAL (Group B) VACC INE SHARED DECISION-MAKING Aged Out No longer eligibl e based on patient's age to complete this topic MENINGOCOCCAL GROUPS A/C/Y/W VACCINE Aged Out No longer eligible b ased on patient's age to complete this topic Insurance MEDICARE [employer] Care Teams Blueprinter Relationship Specialty Start Date End Date Maykel Rubin MD PCP - General 07/10/09
--- OUTSIDE RECORDS SUMMARY | 2024-12-13 12:01 | XMS_ITS | Clinical Summary ---
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 Loader Machine Operator Name Role Phone Leo Livingston MD Unavailable [phone] Christiano York MD Unavailable [phone] Kwan Prado MD Unavailable [phone] Augusto Johnson MD Unavailable [phone] Jossie Montaño NP Primary Care Provider [phone] Allergies Active Allergy Reactions Criticality Noted Date Comments Amoxicillin Diarrhea,Rash Medium 02/03/2024 Medications aspirin 81 mg enteric coated tablet Take 1 tablet (81 mg total) by mouth daily Active glucosamine sulfate 500 mg capsule Take 1,000 mg by mouth daily Active garlic 100 mg tablet Take by mouth Active hksbjsg-nnew-pjhmf-oreg -capryl 100 mg-150 mg- 50 mg-150 mg [...] Take blood pressure once daily 1 kit 024 Active felodipine (PLENDIL) 2.5 mg 24 hr [...] 40 mg tabletIndications:Coron crystal artery disease involving [place] coronary artery of [place] heart without angina pectoris,Stenosis of right carotid artery,Pure hypercholesterolemia TAKE 1 TABLET EVERY NIGHT 90 tablet 3 025 Active Active Problems Problem Noted Date Diagnosed Date Anxiety 08/17/2024 Assessment & Plan (08/17/2024 2:24 PM SCULLION CHIEF): Patient states symptoms are stable at this time. He does not wish to initiate any further medication for anxiety. He feels like he is doing okay without medication Hyponatremia 08/17/2024 Assessment & Plan (08/17/2024 2:25 PM SCULLION CHIEF): Improved. He has discontinued the sertraline. He saw his head up operator helper this morning. Patient is feeling better Neuropathy 03/30/2024 Assessment & Plan (09/19/2024 2:13 PM SCULLION CHIEF): Labs ordered Assessment & Plan (03/30/2024 5:46 [...] to put on a controlled substance agreement. [place] physician drug monitoring database reviewed Benign prostatic [...] 02/21/2020 Assessment & Plan (09/25/2024 11:12 AM SCULLION CHIEF): Stable continue simvastatin Assessment & Plan (03/30/2024 [...] 02/21/2020 Assessment & Plan (09/25/2024 11:12 AM SCULLION CHIEF): Stable continue ramipril Assessment & Plan (09/19/2024 2:13 PM SCULLION CHIEF): Home BP's much improved, ranging 130's/60's the majority of the time with normal pulse. Elevated in office but pt also feeling pain, has appt with pain management this afternoon. Will have pt send home bp's in 1 week. Assessment & Plan (08/01/2024 2:16 PM SCULLION CHIEF): Home BP's not at goal, ranging 150-160's [...] 02/21/2020 Assessment & Plan (09/25/2024 11:12 AM SCULLION CHIEF): Asymptomatic severe greater than 70% right ICA [...] at goal Coronary artery disease invo lving [place] coronary artery of [place] heart without angina pectoris 11/14/2019 Assessment & [...] with slight anemia. Following with Hematology/Oncology at [facility]. Could be very subtle version of myelodysplastic syndrome but no definitive diagnosis. They are monitoring with lab work every 6 months. Denies any significant anemia or symptoms Resolved Problems Problem Noted Date Diagnosed Date Resolved Date Abdominal aortic aneurysm 12/29/2022 Overview (03/30/2024): 3.4 cm on 12/28/22 lumbar films Encounters Date Type Department Care Team Description 10/09/2024 8:07 AM SCULLION CHIEF - 10/09/2024 11:59 PM SCULLION CHIEF Hospital Encounter [place] [id number] [place] [address] Vitamin D deficiency; Neuropathy; B12 deficiency; Essential hypertension Discharge Disposition: Discharge to home or self care 10/09/2024 8:00 AM SCULLION CHIEF Lab [facility] Outpatient Lab at [address] [phone] Hyperlipidemia (Primary Dx) 09/25/2024 Telephone [facility] Primary Care at [address] [phone] Jossie Montaño NP 09/20/2024 9:15 AM SCULLION CHIEF Office Visit [facility] Vascular at [address] [phone] Ranjith Lopez MD Stenosis of right carotid artery (Primary Dx); Mixed hyperlipidemia; Essential hypertension 09/20/2024 Orders Only [facility] Primary Care at [address] [phone] Jossie Montaño NP 09/20/2024 Telephone [facility] Primary Care at [address] [phone] Jossie Montaño NP Test Results (X-ray) 09/20/2024 Orders Only [facility]ascular at [address] [phone] Ranjith Lopez MD Bilateral carotid artery stenosis (Primary Dx) 09/19/2024 12:30 PM SCULLION CHIEF Ancillary Procedure [facility] Imaging at [address] [phone] Rib pain on left side 09/19/2024 11:30 AM SCULLION CHIEF Office Visit [facility] Primary Care at [address] [phone] Jossie Montaño NP Essential hypertension (Primary Dx); Neuropathy; Rib pain on left side; B12 deficiency; Vitamin D deficiency from Last 3 Months Immunizations Immunization Administration Dates Next Due Influenza, Quadrivalent, Hig h Dose, Preservative Free, Intrr 06/11/2022,06/30/2021,06/10/2020 Influenza, Quadrivalent, Spl it, Preservative Free, Intramuscular 07/03/2015 Influenza, Trivalent, High D ose, Split, Preservative Free, Intramuscular 06/20/2024,06/20/2019,06/20/2018,06/10,06/29/2016 Influenza, Unspecified 08/30/2023(Deferr ed: Patient Refused),08/30/2022(Deferred: Patient Refused),06/24/2017,06/24/2016, 015 Pneumococcal Conjugate PCV 13 06/29/2016 Pneumococcal Conjugate, Unspecified 06/24/2016 Surgical History Surgery Date Site/Laterality Comments LUNG SURGERY Right VATSs with right pleurodesis Medical History Medical History Date Comments Anemia Macrocytic anemi a Skin cancer Hypercholesteremia CAD (coronary artery disease) OAB (overactive bladder) Chronic back pain Constipation Lumbar burst fracture, sequela Pneumothorax right. Hx of VAT S with pleurodesis Family History Medical History Relation Name Comments Lung cancer Father Lymphoma Mother Relation Name Status Comments Brother (Age 77) BRAIN TUMO R Father (Age 78) LUNG CANCE R Mother (Age 67) LYMPHOMA Social History Tobacco Use Types Packs/Day Years Used Date Smoking Tobacco: Former Cigarettes 0.8 4 1 962 - 1965 Smokeless Tobacco: Never Tobacco Cessation:Counseling Given: Not Answered Comments:QUITE 1966 Alcohol Use Standard Drinks/Week Comments Yes 0 [...] on file Legal Sex Male 6:23 AM SCULLION CHIEF Gender Identity Male 02/22/2018 2:20 PM CDT Sexual Orientation Not on file Obstetrics History Last Filed Vital Signs Vital Sign Reading Time Taken Comments Blood Pressure 188/92 09/20/2024 9:20 AM SCULLION CHIEF Pulse 43 09/20/2024 9:20 AM SCULLION CHIEF Temperature 37.2 C (98.9 F) 09/19/2024 11:37 AM SCULLION CHIEF Respiratory Rate 18 08/14/2024 4:03 PM SCULLION CHIEF Oxygen Saturation 96% 09/20/2024 9:20 AM SCULLION CHIEF Inhaled Oxygen Concentration - - Weight 72.1 kg (159 lb) 09/20/2024 9:20 AM SCULLION CHIEF Height 172.7 cm (5' 8 ) 09/20/2024 9:20 AM SCULLION CHIEF Body Mass Index 24.18 09/20/2024 9:20 AM SCULLION CHIEF Plan of Treatment Health Maintenance Due Date Last Done Comments DTaP/Tdap/Td Vaccine (1 - Tdap) 1951 Zoster Vaccine (1 of 2) 1991 Well Visit 65+ 2006 Pneumococcal vaccine 65+ (2 of 2 - PPSV23) 06/29/2017 06/29/2016, 06/24/2016 Covid-19 Vaccine (4 - 2023-2 5 season) 2024 07/16/2021, 10/29/2020, 09/26/2020 Fall Risk Assessment 08/01/2025 08/01/2024, 06/19/2024, 03/30/2024 Depression Screening 09/19/2025 09/19/2024, 08/01/2024, 06/19/2024, Additional history exists Hepatitis B Screening Completed 03/31/2024 Influenza Vaccine Completed 06/20/2024, , 06/30/2021, Additional history exists Procedures Procedure Name Priority Date/Time Associated Diagnosis Comments EGFR Routine 10/09/2024 3:06 PM SCULLION CHIEF Essential hypertension T4, FREE Routine 10/09/2024 3:06 PM SCULLION CHIEF Essential hypertension DIFFERENTIAL AUTO Routine 10/09/2024 3:0 6 PM SCULLION CHIEF Essential hypertension CBC WITH AUTO DIFFERENTIAL Routine 10/09/2024 3:06 PM SCULLION CHIEF Essential hypertension COMPREHENSIVE METABOLIC PANEL Routine 10/09/2024 3:06 PM SCULLION CHIEF Essential hypertension LIPID PANEL Routine 10/09/2024 3:06 PM SCULLION CHIEF Essential hypertension THYROID FUNCTION CASCADE Routine 10/09/2024 3:06 PM SCULLION CHIEF Essential hypertension VITAMIN B12 Routine 10/09/2024 3:06 PM SCULLION CHIEF Neuropathy B12 deficiency VITAMIN D 25 HYDROXY Routine 10/09/2024 3:06 PM SCULLION CHIEF Vitamin D deficiency XR RIBS BILATERAL 3 VIEWS Schedule Routine, Read Routine (OP Routine) 09/19/2024 12:32 PM SCULLION CHIEF Rib pain on left side from Last 3 Months Results * eGFR (10/09/2024 3:06 PM SCULLION CHIEF) eGFR 81 >=60 mL/min/1. 73 m2 Comment: [...] last reviewed 2021. Blood 10/09/2024 3:06 PM SCULLION CHIEF 10/09/2024 8:14 PM SCULLION CHIEF us Jossie Montaño DRY STARCH SUPERVISOR LAB BLOOD ORDERABLES Final Resul t [facility] [address] Department [place] [address] * Differential, auto (10/09/2024 3:06 PM SCULLION CHIEF) Neutrophil abs 3.1 1.5 - 6.5 K/cumm Imm gran abs 0.0 0.0 - 0.1 K/cumm [facility] Lymphocyte abs 1.0 0.8 - 3.3 K/cumm [facility] Monocyte abs 0.3 0.2 - 0.8 K/cumm [facility] Eosinophil abs 0.2 0.0 - 0.5 K/cumm [facility] Basophil abs 0.0 0.0 - 0.1 K/cumm [facility] Neutrophil pct 67.3 % [facility] Comment: Interpretive Data Percent cell count reference ranges are not reported, since discordance with absolute values may lead to misinterpretation of CBC data. Current Interpretive Data was last revised on 2017. Imm gran pct 0.2 % [facility] Comment: Interpretive Data Percent cell count reference ranges are not reported, since discordance with absolute values may lead to misinterpretation of CBC data. Current Interpretive Data was last revised on 2017. Lymphocyte pct 21.1 % [facility] Comment: Interpretive Data Percent cell count reference ranges are not reported, since discordance with absolute values may lead to misinterpretation of CBC data. Current Interpretive Data was last revised on 2017. Monocyte pct 6.8 % [facility] Comment: Interpretive Data Percent cell count reference ranges are not reported, since discordance with absolute values may lead to misinterpretation of CBC data. Current Interpretive Data was last revised on 2017. Eosinophil pct 3.9 % [facility] Comment: Interpretive Data Percent cell count reference ranges are not reported, since discordance with absolute values may lead to misinterpretation of CBC data. Current Interpretive Data was last revised on 2017. Basophil pct 0.7 % [facility] Comment: Interpretive Data Percent cell count reference ranges are not reported, since discordance with absolute values may lead to misinterpretation of CBC data. Current Interpretive Data was last revised on 2017. Blood 10/09/2024 3:06 PM SCULLION CHIEF 10/09/2024 7:50 PM SCULLION CHIEF us Jossie Montaño DRY STARCH SUPERVISOR LAB BLOOD ORDERABLES Final Resul t Performing Organization Address City/[facility]/ZIP Co de Phone Number CARO TERRAZAS [address] [facility] [place] [address] * (ABNORMAL) Thyroid Function [place] (10/09/2024 3:06 PM SCULLION CHIEF) TSH 5.29(H) 0.30 - 4.20 mcIUnit/mL Blood 10/09/2024 3:06 PM SCULLION CHIEF 10/09/2024 7:50 PM SCULLION CHIEF us Jossie Montaño DRY STARCH SUPERVISOR LAB BLOOD ORDERABLES Final Resul t Performing Organization Address [facility] de Phone Number CARO TERRAZAS [address] [address] Department [facility] [place] [address] * (ABNORMAL) CBC with auto differential (10/09/2024 3:06 PM SCULLION CHIEF) WBC 4.6 3.8 - 9.9 K/cumm Hgb 12.1(L) 13.0 - 17.5 g/dL [facility] Hct 37.5(L) 38.9 - 50.3 % [facility] CH Plt 194 150 - 400 K/cumm [facility] MPV 8.6(L) 9.1 - 12.3 fL [facility] RBC 3.23(L) 4.30 - 5.80 M/cumm [facility] MCV 116.1(H) 81.3 - 96.4 fL [facility] MCH 37.5(H) 27.1 - 33.3 pg [facility] MCHC 32.3 32.3 - 35.7 g/dL [facility] RDW CV 12.2 11.1 - 14.9 % [facility] RDW SD 52.3(H) 35.7 - 48.1 fL [facility] NRBC abs 0.00 0.00 - 0.01 K/cumm [facility] Blood 10/09/2024 3:06 PM SCULLION CHIEF 10/09/2024 7:50 PM SCULLION CHIEF us Jossie Montaño DRY STARCH SUPERVISOR LAB BLOOD ORDERABLES Final Resul t CARO TERRAZAS [address] [address] [facility] [place] [address] * Vitamin D 25 hydroxy (10/09/2024 3:06 PM SCULLION CHIEF) Vitamin D 25-OH 34 30 - 80 ng/mL Blood 10/09/2024 3:06 PM SCULLION CHIEF 10/09/2024 7:50 PM SCULLION CHIEF us Jossie Montaño DRY STARCH SUPERVISOR LAB BLOOD ORDERABLES Final Resul t Performing Organization Address [facility] de Phone Number PAULCODY TERRAZAS [address] [address] Department [facility] [place] [address] * T4, free (10/09/2024 3:06 PM SCULLION CHIEF) Free T4 0.97 0.90 - 1.70 ng/dL Blood 10/09/2024 3:06 PM SCULLION CHIEF 10/09/2024 8:14 PM SCULLION CHIEF us Jossie Montaño DRY STARCH SUPERVISOR LAB BLOOD ORDERABLES Final Resul t Performing Organization Address [facility] Co de Phone Number PAULCODY TERRAZAS [address] Department [facility] [place] [address] * Vitamin B12 (10/09/2024 3:06 PM SCULLION CHIEF) Vitamin B12 915 230 - 1,250 pg/mL Blood 10/09/2024 3:06 PM SCULLION CHIEF 10/09/2024 7:50 PM SCULLION CHIEF us Jossie Montaño DRY STARCH SUPERVISOR LAB BLOOD ORDERABLES Final Resul t Performing Organization Address City/[facility] Co de Phone Number CARO TERRAZAS [address] [address] Department [facility] [place] [address] * Lipid panel (10/09/2024 3:06 PM SCULLION CHIEF) Cholesterol 175 30 - 199 mg/dL Comment: [...] on 2018. Triglycerides 57 <=149 mg/dL CARO TERRAZAS Comment: Interpretive Data Ages [...] revised on 2024. Non-HDL Cholesterol 74 mg/dL [facility] Comment: Interpretive Data Ages < or = [...] last revised on 2018. Chol/HDL ratio 2 [facility] CH Blood 10/09/2024 3:06 PM SCULLION CHIEF 10/09/2024 7:50 PM SCULLION CHIEF Jossie Montaño NP LAB BLOOD ORDERABLES Final Resul t [facility]O [address] [address] Department [place] [address] * Comprehensive metabolic panel (10/09/2024 3:06 PM SCULLION CHIEF) Sodium 137 135 - 145 mmol/L Potassium, pl 4.2 3.3 - 4.9 mmol/L [facility] Chloride 102 97 - 110 mmol/L [facility] CO2 24 22 - 32 mmol/L [facility] Anion gap 11 2 - 15 mmol/L [facility] BUN 20 6 - 25 mg/dL [facility] Creatinine 0.93 0.80 - 1.30 mg/dL [facility] Glucose 111 70 - 199 mg/dL [facility] Comment: Interpretive Data Fasting glucose >/= 126 [...] Calcium 9.5 8.5 - 10.3 mg/dL [facility] Bilirubin, total 0.9 0.1 - 1.2 mg/dL [facility] Protein, pl 7.0 6.5 - 8.5 g/dL [facility] Albumin 4.2 3.5 - 5.0 g/dL [facility] Alk phos 90 40 - 130 Units/L [facility] ALT 18 7 - 55 Units/L [facility] AST 25 10 - 50 Units/L [facility] Blood 10/09/2024 3:06 PM SCULLION CHIEF 10/09/2024 7:50 PM SCULLION CHIEF us Jossie Montaño NP LAB BLOOD ORDERABLES Final Resul t [facility] [address] [address] Department [place] [address] * XR Ribs Bilateral 3 Vw (09/19/2024 12:32 PM SCULLION CHIEF) Anatomical Region Laterality Modality Rib, Chest Bilateral Digital Radiogra phy 09/20/2024 6:39 AM SCULLION CHIEF Narrative 09/20/2024 6:42 AM SCULLION CHIEF EXAM DESCRIPTION: XR RIBS BILATERAL 3 VIEWS [...] Jamie Hough M.D. RB T: Report ID: [id number] Reading Location: [id number] Procedure Note Jamie Hough MD - 09/20/2024 [...] Jamie Hough M.D. RB T: Report ID: [id number] Reading Location: [id number] Jossie Montaño NP IMG XR PROCEDURES Final Result from Last 3 Months Insurance [employer] Member Subscriber Plan / Payer ( fective 2012-) Name:Freedom Palomino Relation to Subscriber:Self Name:Freedom Palomino Payer ID:[id number] Group ID:[id number] Type:COMMERCIAL Address: [facility] [address] [place], [place] [address] [employer] [place] Member Subscriber Plan / Payer ( fective 2012-) Name:Freedom Palomino Relation to Subscriber:Self Name:Freedom Palomino Payer ID:[id number] Group ID:Not on file Type:COMMERCIAL Address: [facility] [address] [place], [place] [address] [employer] [facility] [place] Care Teams Bag Loader Machine Operator Relationship Specialty Start Date End Date Jossie Montaño NP [address] [facility] [address] [place] [address] PCP - General Family Medicine 06/19/24 Leo Livingston MD [address] [id number] Referring Physician Hematology 03/30/24 Christiano York MD [address] [address] Consulting Physician Cardiology 03/30/24 Kwan Prado MD [address] [address] Consulting Physician Urology 03/30/24 Augusto Johnson MD [address] [facility] [address] [address] Referring Physician Nephrology 03/30/24
== END 2024-12-13 10:43 | disposition home or self-care (01) ==
LOC: ANHLAB 10:44
PROVIDERS: PCP Nurse Practitioner Family; Visit Provider Internal Medicine Nephrology
DX: E87.1 Hypo-osmolality and hyponatremia (principal)
CPT/HCPCS: 36415; 80069

== ENCOUNTER 2025-02-06 11:10 | Outpatient (CLI) | payer MEDICARE, OTHER, SELFPAY ==
[2025-02-06 11:35] LABS: Basophils Percent Auto 0.7 % (0.2-1.2); Eosinophils Absolute Auto 0.1 K/mm3 (0-0.3); Hematocrit 34.5 % (42.0-52.0); Hemoglobin 11.6 g/dL (14.0-18.0); Lymphocytes Percent Auto 19.9 % (18.3-44.2); Mean Corpuscular HGB Conc 33.6 g/dl (32-36); Mean Corpuscular Hemoglobin 36.7 pg (26-34); Mean Corpuscular Volume 109.2 fl (80-100); Monocytes Absolute Auto 0.4 K/mm3 (0.1-0.6); Monocytes Percent Auto 9.4 % (2.6-8.5); Neutrophils Absolute Auto 2.7 K/mm3 (1.3-6.7); Platelet Count Result 148 k/mm3 (150-375); Red Blood Count 3.16 M/mm3 (4.6-6.20); Red Cell Distribution Width 11.6 % (11.5-14.5)
[2025-02-06 11:39] LABS: Blood Urea Nitrogen 17 mg/dL (8-26); Carbon Dioxide 24 mmol/L (22-30); Chloride 98 mmol/L (98-109); Estimated Glomerular Filt Rate > 60; Glucose 103 mg/dL (70-105); Ionized Calcium (POC) 1.22 mmol/L (1.11-1.31); Potassium 4.5 mmol/L (3.5-4.9); Sodium 133 mmol/L (138-146)
[2025-02-06 12:03] LABS: Alanine Aminotransferase 19 U/L (6-50); Albumin Level 4.3 g/dL (3.5-5.1); Alkaline Phosphatase 75 U/L (38-126); Anion Gap 5 mmol/L (4-12); Aspartate Amino Transferase 32 U/L (17-59); Blood Urea Nitrogen 17 mg/dL (9-20); Calcium 9.2 mg/dL (8.4-10.2); Carbon Dioxide 25 mmol/L (22-30); Chloride 101 mmol/L (98-107); Estimated Glomerular Filt Rate > 60; Glucose 105 mg/dL (65-110); Potassium 4.6 mmol/L (3.4-5.0); Sodium 131 mmol/L (137-145); Total Protein 7.2 g/dL (6.3-8.2)
--- OUTSIDE RECORDS SUMMARY | 2025-02-06 12:34 | XMS_ITS | Referral Summary ---
Author Organization [facility] Address [address] [place] [address] Phone Care Team Providers Care Attorney General Name Role Phone Leo Livingston MD Unavailable [phone] Christiano York MD Unavailable [phone] Kwan Prado MD Unavailable [phone] Augusto Johnson MD Unavailable [phone] Jossie Montaño NP Primary Care Provider [phone] Encounters Date Type Department Care Team Description 01/16/2025 10:30 AM CDT Office Visit [facility] Primary Care at [address] [address] Jossie Montaño NP Medicare annual wellness visit, subsequent (Primary Dx); Essential hypertension; Spondylosis without myelopathy or radiculopathy, lumbar region; Chronic bilateral low back pain without sciatica; Mixed hyperlipidemia; Anemia, macrocytic; Coronary artery disease involving [place] coronary artery of [place] heart without angina pectoris; Vitamin D deficiency; B12 deficiency; Iron deficiency 12/23/2024 Results Follow-Up [facility] Con[facility]ient Care at [address] [address] India Siddiqui PA Influenza A/B, RSV, and COVID-19 PCR Nasopharyngeal 12/22/2024 5:31 PM CDT - 12/22/2024 11:59 PM CDT Hospital Encounter [address] [address] Rhinorrhea Discharge Disposition: Discharge to home or self care 12/22/2024 5:15 PM CDT Office Visit [facility] Convenient Care at [address] [address] Maren Pereira NP Rhinorrhea (Primary Dx) 12/19/2024 11:30 AM CDT Office Visit [facility] Primary Care at [address] [address] Rosy Granados NP Acute non-recurrent frontal sinusitis (Primary Dx) from Last 3 Months Allergies Active Allergy Reactions Criticality Noted Date Comments Amoxicillin Diarrhea,Rash Medium 02/03/2024 Medications aspirin 81 mg enteric coated tablet Take 1 tablet (81 mg total) by mouth daily Active glucosamine sulfate 500 mg capsule Take 1,000 mg by mouth daily Active garlic 100 mg tablet Take by mouth Active vphbbjb-rsnd-gmmgm-oreg -capryl 100 mg-150 mg- 50 mg-150 mg capsule Take by mouth Active coenzyme Q10 100 mg capsule Take 1 capsule (100 mg total) by mouth daily Active Bifidobacterium infantis (ALIGN ORAL)Indications:chroni c constipation Take 1 tablet by mouth daily Active hydrOXYzine (ATARAX) 25 mg tablet Take 1 tablet (25 mg total) by mouth nightly as needed for anxiety (sleep) 30 tablet 1 024 Active Additional Information Patient not taking.Reported on 01/16/2025 blood pressure monitor (Blood Pressure Kit) kitIndications:Essentia l hypertension Take blood pressure once daily 1 kit 024 Active finasteride (PROSCAR) 5 mg tablet Take [...] 40 mg tabletIndications:Coron crystal artery disease involving [place] coronary artery of [place] heart without angina pectoris,Stenosis of right carotid artery,Pure hypercholesterolemia TAKE 1 TABLET EVERY NIGHT 90 tablet 3 025 Active felodipine (PLENDIL) 2.5 mg 24 hr tablet Take 1 tablet (2.5 mg total) by mouth daily 90 tablet 1 025 Active traMADoL (ULTRAM) 50 mg tabletIndications:Spond ylosis without myelopathy or radiculopathy, lumbar region,Chronic bilateral low back pain without sciatica Take 1 tablet (50 mg total) by mouth every 12 (twelve) hours as needed for pain 60 tablet 025 Active traMADoL (ULTRAM) 50 mg tabletIndications:Spond ylosis without myelopathy or radiculopathy, lumbar region,Chronic bilateral low back pain without sciatica Take 1 tablet (50 mg total) by mouth every 12 (twelve) hours as needed for pain 60 tablet 024 2024 Disconti nued(Reo rder) felodipine (PLENDIL) 2.5 mg 24 hr tablet Take 1 tablet (2.5 mg total) by mouth daily 90 tablet 1 025 2024 Disconti nued(Reo rder) Active Problems Problem Noted Date Diagnosed Date Medicare annual wellness visit, subsequent 01/16 Assessment & Plan (01/16/2025 12:25 PM CDT): A yearly Medicare Annual Wellness Visit has been performed today. Freedom Zhangenrriqueelio is up to date on screening tests. He is in need of None- no screening indicated at this time- these have been ordered. He is not up to date on needed preventative vaccinations; He is in need of Tdap/Td, Pneumonia (Prevnar-13 or Pneumovax-23), Zoster, and Covid-19 (booster). These have been ordered/arranged unless otherwise indicated. Anxiety 08/17/2024 Assessment & Plan (08/17/2024 2:24 PM REGISTRY RN): Patient states symptoms are stable at this time. He does not wish to initiate any further medication for anxiety. He feels like he is doing okay without medication Hyponatremia 08/17/2024 Assessment & Plan (08/17/2024 2:25 PM REGISTRY RN): Improved. He has discontinued the sertraline. He saw his traffic control operator this morning. Patient is feeling better Neuropathy 03/30/2024 Assessment & Plan (09/19/2024 2:13 PM REGISTRY RN): Labs ordered Assessment & Plan (03/30/2024 5:46 [...] radiculopathy, lumbar region 03/30/2024 Assessment & Plan (01/16/2025 12:23 PM CDT): Stable overall, does follow with pain management for targeted injections. Pt has rx for prn Tramadol, has not had refilled since 03/2024. Uses very sparingly. Will refill for pt. Assessment & Plan (03/30/2024 5:47 PM CDT): [...] to put on a controlled substance agreement. 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 It could have shrunk due to the chronic use of finasteride. Sees urology. Continue finasteride and tamsulosin if it helps with his symptoms of incomplete emptying and bladder frequency Unilateral primary osteoarth ritis of first carpometacarpal joint, left hand 07/29/2023 Fracture of lumbar spine 01/06/2023 Chronic idiopathic constipation 12/30/2022 Assessment & Plan (03/30/2024 5:45 PM CDT): Chronic. Reports improved with probiotic align. Continue. Monitor Hyperlipidemia 02/21/2020 Assessment & Plan (01/16/2025 12:25 PM CDT): Has been stable, continuing Simvastatin. Assessment & Plan (09/25/2024 11:12 AM REGISTRY RN): Stable continue simvastatin Assessment & Plan (03/30/2024 [...] why Essential hypertension 02/21/2020 Assessment & Plan (01/16/2025 12:25 PM CDT): BP borderline in office today but home BP's acceptable. Will continue with the Ramipril and Felodipine. Assessment & Plan (09/25/2024 11:12 AM REGISTRY RN): Stable continue ramipril Assessment & Plan (09/19/2024 2:13 PM REGISTRY RN): Home BP's much improved, ranging 130's/60's the majority of the time with normal pulse. Elevated in office but pt also feeling pain, has appt with pain management this afternoon. Will have pt send home bp's in 1 week. Assessment & Plan (08/01/2024 2:16 PM REGISTRY RN): Home BP's not at goal, ranging 150-160's [...] 02/21/2020 Assessment & Plan (09/25/2024 11:12 AM REGISTRY RN): Asymptomatic severe greater than 70% right ICA [...] at goal Coronary artery disease invo lving [place] coronary artery of [place] heart without angina pectoris 11/14/2019 Assessment & Plan (01/16/2025 12:26 PM CDT): Asymptomatic in office. Continues follow up with Cardiology and current regimen. Assessment & Plan (03/30/2024 5:45 PM CDT): [...] with slight anemia. Following with Hematology/Oncology at [facility]. Could be very subtle version of myelodysplastic [...] points, staff should administer the PHQ-9) 0 01/16/2025 PHQ-9 Answer Date Recorded PHQ-9 Total Score 2 03/30/2024 Sex and Gender Information Value Date Recorded Sex Assigned at Not on file Legal Sex Male 6:23 AM REGISTRY RN Gender Identity Male 02/22/2018 2:20 PM CDT Sexual Orientation Not on file Last Filed Vital Signs Vital Sign Reading Time Taken Comments Blood Pressure 150/58 01/16/2025 11:19 AM CDT Pulse 70 01/16/2025 10:44 AM CDT Temperature 36.9 C (98.4 F) 01/16/2025 10:44 AM CDT Respiratory Rate 24 12/22/2024 5:14 PM CDT Oxygen Saturation 99% 01/16/2025 10:44 AM CDT Inhaled Oxygen Concentration - - Weight 68 kg (150 lb) 01/16/2025 10:44 AM CDT Height 172.7 cm (5' 8) 01/16/2025 10:44 AM CDT Body Mass Index 22.81 01/16/2025 10:44 AM CDT Plan of Treatment Not on file Procedures Procedure Name Priority Date/Time Associated Diagnosis Comments INFLUENZA A/B, RSV, AND COVID-19 PCR Routine 12/22/2024 5:31 PM CDT Rhinorrhea from Last 3 Months Results * Influenza A/B, RSV, and COVID-19 PCR Nasopharyngeal (12/22/2024 5:31 PM CDT) COVID-19 RNA Negative Negative [facility] Influenza A RNA Negative Negative [facility] Influenza B RNA Negative Negative [facility] RSV RNA Negative Negative [facility] Comment: Interpretive data: Testing performed by [facility]. This test is performed using the Phloronol Xpert Xpress CoV-2/Flu/RSV plus assay. This is a multiplex, real-time reverse transcriptase PCR assay intended for the qualitative detection of nucleic acid from SARS-CoV-2, influenza A, influenza B, and respiratory syncytial virus. This assay has been cleared by the [place] Food and Drug administration. The performance characteristics have been verified by the [facility]. Results must be considered in the clinical context, and a negative result does not rule out infection. Interpretive Data last revised 2023 Nasopharyngeal 12/22/2024 5: 31 PM CDT 12/22/2024 9:56 PM CDT Narrative [facility] - 12/22/2024 10:59 PM CDT Is the Patient experiencing symptoms consistent with COVID?->Yes Maren Pereira NP LAB MICROBIOLOGY - GENERAL ORD ERABLES Final Result [facility] [address] [place] [address] from Last 3 Months Insurance MEDICARE [employer] Member Subscriber Plan / Payer ( fective 2012-) Name:Freedom Palomino Relation to Subscriber:Self Name:Freedom Palomino Payer ID:[id number] Group ID:[id number] Type:COMMERCIAL Address: [facility] [address] [place], [place] MEDICARE [employer] [place] [employer] Member Subscriber Plan / Payer ( fective 2012-) Name:Freedom Palomino Relation to Subscriber:Self Name:Freedom Palomino Payer ID:[id number] Group ID:Not on file Type:COMMERCIAL Address: [facility] [address] [place], [place] MEDICARE [employer] [place] [employer] Care Teams Attorney General Relationship Specialty Start Date End Date Jossie Montaño NP [address] [facility] [address] [place] [address] PCP - General Family Medicine 06/19/24 Leo Livingston MD [address] [facility] [place] [address] [place] [id number] Referring Physician Hematology 03/30/24 Christiano York MD [address] [facility] [facility] [address] [place] [address] Consulting Physician Cardiology 03/30/24 Kwan Prado MD [address] [facility] [facility] [facility] [address] [place] [address] Consulting Physician Urology 03/30/24 Augusto Johnson MD [address] [facility] [facility] [facility] [address] [place] [address] Referring Physician Nephrology 03/30/24
--- OUTSIDE RECORDS SUMMARY | 2025-02-06 12:34 | XMS_ITS | Encounter Summary ---
Author Organization [facility] Address [address] [place] [address] Care Team Providers Care Sales Project Engineer Name Role Phone Maykel Rubin MD Primary Care Provider [phone] Encounter Details Date Type Department Care Team (Late st Contact Info) Description 04/13/2023 Lab Requisition [facility] - DermPath Lab [address] [facility] [place] [address] Manjit Gomes MD [facility] DERMATOLOGY [address] [place] [phone] Neoplasm of uncertain behavior of skin Social History Tobacco Use Types Packs/Day Years Used Date Smoking Tobacco: Never Assessed Sex and Gender Information Value Date Recorded Sex Assigned at Not on file Legal Sex Male 7:31 PM FAMILY NURSE Gender Identity Not on file Sexual Orientation Not on file documented as of this encounter Plan of Treatment Not on file documented as of this encounter Procedures Procedure Name Priority Date/Time Associated Diagnosis Comments DERMATOPATHOLOGY Routine 04/13/2023 12:0 0 AM CDT Neoplasm of uncertain behavior of skin documented in this encounter Results * DERMATOPATHOLOGY (04/13/2023 12:00 AM CDT) Case Report Dermatopathology Report Case: [id number] Authorizing Provider: Manjit Gomes MD Collected: 04/13/2023 12:00 AM Ordering Location: [facility] DermPath Lab Received: 04/14/2023 01:06 PM Pathologist: Yusra Fox MD Specimens: A) - Skin, right upper forehead B) - Skin, right parietal scalp 3:07 PM CDT DERMATOPATHOLOGY LABORATORY Final Diagnosis Specimen A. 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 [...] measuring 6x5x1 mm. Jar 0. 3:07 PM CDT DERMATOPATHOLOGY LABORATORY Microscopic Description Specimen A. SKIN, [...] different levels, and dyskeratotic cells. 3:07 PM CDT DERMATOPATHOLOGY LABORATORY Disclaimer An external and internal positive and negative controls are appropriate for the histochemical, immunohistochemical and immunofluorescence stain(s) in this case (if any), except where stated explicitly. The performance characteristics of the stain(s) cited in this report were developed and its performance characteristic determined by the Dermatopathology Laboratory at [facility], directed by Dr. Jose Armando Mckenzie. These tests need not be, and therefore are not, approved by the [place] Food and Drug Administration. The tests are used for clinical purposes. Billing Codes Specimen Charges Stain Charges 08748 [id number] 1 1 3:07 PM CDT DERMATOPATHOLOGY LABORATORY Embedded Images 3:07 PM CDT DERMATOPATHOLOGY LABORATORY Pathology/Cytology TISSUE SPECIMEN FROM SKIN / Unknown 04/13/2023 04/14/2023 1:06 PM CDT Miscellaneous samples (specimen) TISSUE SPECIMEN FROM SKIN / Unknown 04/13/2023 04/14/2023 1:06 PM CDT Manjit Gomes MD LAB - PATHOLOGY/CYTOLOGY [place] Final Result DERMATOPATHOLOGY LABORATORY [facility] - Department of Dermatology [facility] Medicine [address] [place] [address], [address] [phone] documented in this encounter Visit Diagnoses Diagnosis Neoplasm of uncertain behavior of skin documented in this encounter Care Teams Sales Project Engineer Relationship Specialty Start Date End Date Maykel Rubin MD PCP - General 07/10/09 documented as of this encounter
--- OUTSIDE RECORDS SUMMARY | 2025-02-06 12:34 | XMS_ITS | Clinical Summary ---
Author Organization [facility] Address [address] [facility] [place] [address] Phone Care Team Providers Care Block Trimmer Name Role Phone Leo Livingston MD Unavailable [phone] Christiano York MD Unavailable [phone] Kwan Prado MD Unavailable Augusto Johnson MD Unavailable [phone] Jossie Montaño NP Primary Care Provider [phone] Allergies Active Allergy Reactions Criticality Noted Date Comments Amoxicillin Diarrhea,Rash Medium 02/03/2024 Medications aspirin 81 mg enteric coated tablet Take 1 tablet (81 mg total) by mouth daily Active glucosamine sulfate 500 mg capsule Take 1,000 mg by mouth daily Active garlic 100 mg tablet Take by mouth Active rtyucsb-ulrw-yvcbx-oreg -capryl 100 mg-150 mg- 50 mg-150 mg [...] 40 mg tabletIndications:Coron crystal artery disease involving [place] coronary artery of [place] heart without angina pectoris,Stenosis of right carotid [...] Wellness Visit has been performed today. Freedom Vinny Palomino is up to date on screening tests. He is in need of None- no screening indicated at this time- these have been ordered. He is not up to date on needed preventative vaccinations; He is in need of Tdap/Td, Pneumonia (Prevnar-13 or Pneumovax-23), Zoster, and Covid-19 (booster). These have been ordered/arranged unless otherwise indicated. Anxiety 08/17/2024 Assessment & Plan (08/17/2024 2:24 PM CERTIFIED ADAPTED PHYSICAL EDUCATOR): Patient states symptoms are stable at this time. He does not wish to initiate any further medication for anxiety. He feels like he is doing okay without medication Hyponatremia 08/17/2024 Assessment & Plan (08/17/2024 2:25 PM CERTIFIED ADAPTED PHYSICAL EDUCATOR): Improved. He has discontinued the sertraline. He saw his mixer operator raw salt this morning. Patient is feeling better Neuropathy 03/30/2024 Assessment & Plan (09/19/2024 2:13 PM CERTIFIED ADAPTED PHYSICAL EDUCATOR): Labs ordered Assessment & Plan (03/30/2024 5:46 [...] to put on a controlled substance agreement. [place] physician drug monitoring database reviewed Benign prostatic [...] Simvastatin. Assessment & Plan (09/25/2024 11:12 AM CERTIFIED ADAPTED PHYSICAL EDUCATOR): Stable continue simvastatin Assessment & Plan (03/30/2024 [...] Felodipine. Assessment & Plan (09/25/2024 11:12 AM CERTIFIED ADAPTED PHYSICAL EDUCATOR): Stable continue ramipril Assessment & Plan (09/19/2024 2:13 PM CERTIFIED ADAPTED PHYSICAL EDUCATOR): Home BP's much improved, ranging 130's/60's the majority of the time with normal pulse. Elevated in office but pt also feeling pain, has appt with pain management this afternoon. Will have pt send home bp's in 1 week. Assessment & Plan (08/01/2024 2:16 PM CERTIFIED ADAPTED PHYSICAL EDUCATOR): Home BP's not at goal, ranging 150-160's [...] 02/21/2020 Assessment & Plan (09/25/2024 11:12 AM CERTIFIED ADAPTED PHYSICAL EDUCATOR): Asymptomatic severe greater than 70% right ICA [...] at goal Coronary artery disease invo lving [place] coronary artery of [place] heart without angina pectoris 11/14/2019 Assessment & [...] with slight anemia. Following with Hematology/Oncology at [facility]. Could be very subtle version of myelodysplastic syndrome but no definitive diagnosis. They are monitoring with lab work every 6 months. Denies any significant anemia or symptoms Resolved Problems Problem Noted Date Diagnosed Date Resolved Date Abdominal aortic aneurysm 12/29/2022 Overview (03/30/2024): 3.4 cm on 12/28/22 lumbar films Encounters Date Type Department Care Team Description 01/16/2025 10:30 AM CDT Office Visit [facility] Primary Care at [address] [address] Jossie Montaño NP Medicare annual wellness visit, subsequent (Primary Dx); Essential hypertension; Spondylosis without myelopathy or radiculopathy, lumbar region; Chronic bilateral low back pain without sciatica; Mixed hyperlipidemia; Anemia, macrocytic; Coronary artery disease involving [place] coronary artery of [place] heart without angina pectoris; Vitamin D deficiency; B12 deficiency; Iron deficiency 12/23/2024 Results Follow-Up [facility] Convenient Care at [address] [phone] India Siddiqui PA Influenza A/B, RSV, and COVID-19 PCR Nasopharyngeal 12/22/2024 5:31 PM CDT - 12/22/2024 11:59 PM CDT Hospital Encounter [address] [address] Rhinorrhea Discharge Disposition: Discharge to home or self care 12/22/2024 5:15 PM CDT Office Visit [facility] Care at [address] [phone] Maren Pereira NP Rhinorrhea (Primary Dx) 12/19/2024 11:30 AM CDT Office Visit [facility] Primary Care at [address] [phone] Rosy Granados NP Acute non-recurrent frontal sinusitis (Primary Dx) from Last 3 Months Immunizations Immunization Administration [...] Smoking Tobacco: Former Cigarettes 0.8 4 1 1965 Smokeless Tobacco: Never Tobacco Cessation:Counseling Given: [...] on file Legal Sex Male 6:23 AM CERTIFIED ADAPTED PHYSICAL EDUCATOR Gender Identity Male 02/22/2018 2:20 PM CDT [...] 01/16/2025 10:44 AM CDT Plan of Treatment Health Maintenance Due Date Last Done Comments DTaP/Tdap/Td Vaccine (1 - Tdap) 1951 Zoster Vaccine (1 of 2) 1991 Pneumococcal vaccine 65+ (2 of 2 - PPSV23) 06/29/2017 06/29/2016, 06/24/2016 Covid-19 Vaccine (4 2023-2 5 season) 2024 07/16/2021, 10/29/2020, 09/26/2020 Depression Screening 01/16/2026 01/16/2025, 12/19/2024, 09/19/2024, Additional history exists Fall Risk Assessment 01/16/2026 01/16/2025, 08/01/2024, 06/19/2024, Additional history exists Well Visit 65+ 01/16/2026 01/16/2025 Hepatitis B Screening Completed 03/31/2024 Influenza Vaccine Completed 06/20/2024, , 06/30/2021, Additional history exists Procedures Procedure Name Priority Date/Time Associated Diagnosis Comments INFLUENZA A/B, RSV, AND COVID-19 PCR Routine 12/22/2024 5:31 PM CDT Rhinorrhea from Last 3 Months Results * Influenza A/B, RSV, and COVID-19 PCR Nasopharyngeal (12/22/2024 5:31 PM CDT) COVID-19 RNA Negative Negative Influenza A RNA Negative Negative [facility] Influenza B RNA Negative Negative [facility] RSV RNA Negative Negative [facility] Comment: Interpretive data: Testing performed by [facility]. This test is performed using the [employer] Xpert Xpress CoV-2/Flu/RSV plus assay. This is a multiplex, real-time reverse transcriptase PCR assay intended for the qualitative detection of nucleic acid from SARS-CoV-2, influenza A, influenza B, and respiratory syncytial virus. This assay has been cleared by the [place] Food and Drug administration. The performance characteristics have been verified by the [facility]. Results must be considered in the clinical context, and a negative result does not rule out infection. Interpretive Data last revised 2023 Nasopharyngeal 12/22/2024 5: 31 PM CDT 12/22/2024 9:56 PM CDT Narrative [facility] - 12/22/2024 10:59 PM CDT Is the Patient experiencing symptoms consistent with COVID?->Yes us Maren Pereira NP LAB MICROBIOLOGY - GENERAL ORD ERABLES Final Result [facility] [address] Department [place] [address] from Last 3 Months Insurance MEDICARE RAILRO[employer] [facility] [place] [address] [place] [address] [employer] [place] [address] [place] [address] MEDICARE [employer] Care Teams Block Trimmer Relationship Specialty Start Date End Date Jossie Montaño NP [address] [place], [place] [id number] PCP - General Family Medicine 06/19/24 Leo Livingston MD [address] [place] [address] Referring Physician Hematology 03/30/24 Christiano York MD [address] [place] [address] Consulting Physician Cardiology 03/30/24 Kwan Prado MD [address] [place] [address] Consulting Physician Urology 03/30/24 Augusto Johnson MD [address] [place] [address] Referring Physician Nephrology 03/30/24
--- OUTSIDE RECORDS SUMMARY | 2025-02-06 12:34 | XMS_ITS | Encounter Summary ---
Author Organization [facility] Healthcare Address [address] [place] [address] Care Team Providers Care Cognos Developer Name Role Phone Leo Livingston MD Unavailable [phone] Christiano York MD Unavailable [phone] Kwan Prado MD Unavailable [phone] Augusto Johnson MD Unavailable [phone] Jossie Montaño NP Primary Care Provider [phone] Encounter Details Date Type Department Care Team (Late st Contact Info) Description 12/23/2024 Results Follow-Up [facility] at [address] [address] India Siddiqui PA [address] [place] [address] [address] [place] [address] Influenza A/B, RSV, and COVID-19 PCR Nasopharyngeal Social History Tobacco Use Types Packs/Day Years Used Date Smoking Tobacco: Former Cigarettes 0.8 4 1 962 - 1966 Smokeless Tobacco: Never Comments:QUITE 1966 Alcohol Use Standard Drinks/Week Comments [...] points, staff should administer the PHQ-9) 0 12/19/2024 PHQ-9 Answer Date Recorded PHQ-9 Total Score 2 03/30/2024 Sex and Gender Information Value Date Recorded Sex Assigned at Not on file Legal Sex Male 6:23 AM VEHICLE COST ENGINEER Gender Identity Male 02/22/2018 2:20 PM CDT Sexual Orientation Not on file documented as of this encounter Miscellaneous Notes * Result Encounter Note - India Siddiqui PA - 12/23/2024 7:59 AM CDT Please notify patient of negative PCR test for COVID, Influenza A/B, and RSV. Please have patient follow up with pcp or return to [facility] if they continue to have symptoms past 10-14 days. documented in this encounter Plan of Treatment Not on file documented as of this encounter Visit Diagnoses Not on filedocumented in this encounter Care Teams Cognos Developer Relationship Specialty Start Date End Date Jossie Montaño NP [address] [facility] [address] [place], [place] [id number] PCP - General Family Medicine 06/19/24 Leo Livingston MD [address] [facility] [address] [place] [address] Referring Physician Hematology 03/30/24 Christiano York MD [address] [facility] [address] [place], [place] [phone] Consulting Physician Cardiology 03/30/24 Kwan Prado MD [address] [facility] [address] [place] [address] Consulting Physician Urology 03/30/24 Augusto Johnson MD [address] [facility] [address] [place] [address] Referring Physician Nephrology 03/30/24 documented as of this encounter
--- OUTSIDE RECORDS SUMMARY | 2025-02-06 12:34 | XMS_ITS | CONTINUITY OF CARE DOCUMENT ---
Author Name rob rivas Address Unknown Organization [facility] Address [address] [place] [address] Phone [phone] Care Team Providers Care Parts Identifier Name Role Phone Howie GONZALEZ, Valentine Unavailable [phone] PILY FUENTES MD Unavailable PILY FUENTES MD Unavailable [phone] INSURANCE PROVIDERS Payer name Policy type / Coverage type [place] [employer] Other 1 [id number] [employer] MEDICARE Medicare [id number]
--- OUTSIDE RECORDS SUMMARY | 2025-02-06 12:35 | XMS_ITS | Clinical Summary ---
Author Organization [facility] Patient Engagement Systems Address [address] [place] [address] Care Team Providers Care Urban Designer Name Role Phone Maykel Rubin MD Primary Care Provider [phone] Source Comments [facility] Patient Engagement Systems,non-owned Affiliates and Associated Physician Practices is amultiple site organization consisting of ambulatory clinics and hospital sitesin [place], [place], [place] and [place]. This disclosure is being madepursuant to the Care Everywhere program and may not contain all information available regarding this patient. 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
--- OUTSIDE RECORDS SUMMARY | 2025-02-06 12:35 | XMS_ITS | Clinical Summary ---
Author Organization [facility] Address [address] [place] [address] Care Team Providers Care Industrial Truck Mechanic Name Role Phone Unavailable Primary Care Provider [...] mL by mouth one time only. Active [id number]-poq [id number]-[id number] 100 mg-150 mg- 50 mg-150 mg Capsule [...] Encounters Date Type Department Care Team Description 02/06/2025 11:45 AM CDT Office Visit [facility] Oncology and Hematology - [place] [address] [place] [address] Leo Livingston MD Chronic anemia (Primary Dx) 01/23/2025 External Device Data STL ABSTRACTION Provider, Abstract 01/18/2025 External Device Data STL ABSTRACTION Provider, Abstract 01/17/2025 External Device Data STL ABSTRACTION Provider, Abstract 01/16/2025 External Device Data STL ABSTRACTION Provider, Abstract 11/15/2024 External Device Data STL ABSTRACTION Provider, Abstract from Last 3 Months Family History Medical History Relation Name Comments Cancer Brother 1 Cancer Father Cancer Mother Relation Name Status Comments Brother 1 Brother 2 Alive Father Mother Sister Social History Tobacco Use Types Packs/Day Years Used Date Smoking Tobacco: Never Smokeless Tobacco: Never Alcohol Use Standard Drinks/Week Comments Yes 0 (1 standard drink = 0.6 oz pur e alcohol) Sex and Gender Information Value Date Recorded Sex Assigned at Not on file Legal Sex Male 2:28 PM CDT Gender Identity Not on file Sexual Orientation Not on file Last Filed Vital Signs Vital Sign Reading Time Taken Comments Blood Pressure 165/68 02/06/2025 11:38 AM CDT Pulse 65 02/06/2025 11:35 AM CDT Temperature 36.7 C (98 F) 02/06/2025 11:35 AM CDT Respiratory Rate 15 02/06/2025 11:35 AM CDT Oxygen Saturation 95% 02/06/2025 11:35 AM CDT Inhaled Oxygen Concentration - - Weight 68.5 kg (151 lb) 02/06/2025 11:35 AM CDT Height 172.7 cm (5' 8) 05/21/2022 1:18 PM CDT Body Mass Index 22.96 05/21/2022 1:18 PM CDT Plan of Treatment Upcoming Encounters Date Type Department Care Team (Late st Contact Info) Description 08/13/2025 11:45 AM GLAZE MAKER Office Visit [facility] Oncology and Hematology - [place] [address] [facility] [address] [place] [address] Leo Livingston MD [address] [facility] [address] [place] [address] Health Maintenance Due Date Last Done Comments DTAP/TDAP/TD VACCINES (1 - Tdap) 1959 Traditional Medicare (ACO) A nnual Wellness Visit 1960 ZOSTER VACCINE (1 of 2) 1991 RSV VACCINE (60+ or ) (1 - 1-dose 75+ series) 2016 PNEUMOCOCCAL VACCINE 50+ YEA RS (2 of 2 - PPSV23) 06/29/2017 06/29/2016, 06/24/2016 INFLUENZA VACCINE Completed 06/20/2024, , 06/30/2021, Additional history exists Insurance MEDICARE [employer] [facility]
--- OUTSIDE RECORDS SUMMARY | 2025-02-06 12:35 | XMS_ITS | Encounter Summary ---
Author Organization [facility] Address [address] [place] [address] Care Team Providers Care Passenger Representative Name Role Phone Unavailable Primary Care Provider Unavailabl e Reason for Visit * Reason Comments Follow Up Encounter Details Date Type Department Care Team (Late st Contact Info) Description 02/06/2025 11:45 AM CDT Office Visit [facility] Oncology and Hematology - [place] [address] [facility] [address] [place] [address] Leo Livingston MD [address] [facility] [address] [place] [address] Chronic anemia (Primary Dx) Social History Tobacco Use Types Packs/Day Years [...] on file documented as of this encounter Last Filed Vital Signs Vital Sign Reading Time Taken Comments Blood Pressure 165/68 02/06/2025 11:38 AM CDT Pulse 65 02/06/2025 11:35 AM CDT Temperature 36.7 C (98 F) 02/06/2025 11:35 AM CDT Respiratory Rate 15 02/06/2025 11:35 AM CDT Oxygen Saturation 95% 02/06/2025 11:35 AM CDT Inhaled Oxygen Concentration - - Weight 68.5 kg (151 lb) 02/06/2025 11:35 AM CDT Height - - Body Mass Index 22.96 05/21/2022 1:18 PM CDT documented in this encounter Progress Notes * Leo Livingston MD - 02/06/2025 12:01 PM CDT HEMATOLOGY / ONCOLOGY PROGRESS NOTE Patient Identification: Name: Freedom Palomino Age: 84 y.o. Sex: male : 1940 DIAGNOSIS Macrocytic anemia CURRENT TREATMENT Multivitamin and B complex TREATMENT HISTORY SUBJECTIVE Patient came into the office for follow-up visit. He denies any chest pain and shortness of breath.No bleeding and bruising. Weight and appetite stable. No other new complaints. Review of system Constitutional: Patient did not mention fevers, sweats, denied any tiredness and fatigue, weight and appetite stable HEENT: Patient did not mention sinus congestion, hearing or vision problems Respiratory: Patient did not mention cough, dyspnea, wheeze Cardiovascular: Patient did not mention chest pain, exertional chest pressure/discomfort, nausea, syncope, shortness of breath GI: Patient did not mention constipation, diarrhea, dsyphagia, reflux symptoms, vomiting, melena : Patient did not mention dysuria, frequency, incontinence, urgency Integumentary system: no lymphadenopathy, sweats, flushing Musculoskeletal: Patient not mention: myalgia, arthralgia Neurological: Patient did not mention blurry or disturbed vision, numbness/weakness, dizziness Skin: No lumps, bumps or rashes. 12 point review of system was reviewed Objective: Vital signs in last 24 hours: As per nursing note Exam: General appearance: alert, cooperative, no distress, appears stated age Head: normocephalic, without obvious abnormality, atraumatic Eyes: conjunctivae/corneas clear, EOM's intact Ears: normal external ear canals AU Nose: Nares normal. Septum midline. Mucosa normal. No drainage or sinus tenderness Throat: Lips, mucosa, and tongue normal. Teeth and gums normal Neck: supple, symmetrical, trachea midline. Lungs: clear to auscultation bilaterally Heart: regular rate and rhythm, S1, S2 normal, no murmur, click, rub or gallop Abdomen: soft, non-tender. Bowel sounds normal. No masses, No organomegaly Extremities: extremities normal, atraumatic, no cyanosis or edema Skin: Skin color, texture, turgor normal. No rashes or lesions Lymph nodes: No lymphadenopathy Neuro: No obvious focal deficit Exam as above PATH LABS Labs from May 28, 2022 showed creatinine 1.0 total bilirubin 1.1 TSH 4.95 vitamin B12 858 iron 96 iron saturation 26% ferritin 78 WBC 4.2 hemoglobin 12.4 platelet 156,000 MCV 111 methylmalonic acid 109 Labs from October 08 showed WBC 4.9 hemoglobin 11.1 MCV 109 platelet 141,000 Labs from January 20 showed iron 73 iron saturation 19% ferritin 102 WBC 4.3 hemoglobin 11.3 high MCV 107 platelet 163,000 creatinine 0.8 vitamin B12 870 Labs from July 29 showed creatinine 0.8 vitamin B12 831 iron 122 saturation 35% ferritin 58 WBC3.8 hemoglobin 12 MCV 110 platelet 138,000 neutrophils 66% lymphocyte 22% total testosterone 498 with free testosterone 46.3. Labs from January 30 showed creatinine 0.9 B12 863 iron 129 saturation 38 ferritin 63 WBC 4.6 hemoglobin 11.7 MCV 108 platelet 154,000 Labs from August 02 showed hemoglobin 11.3 MCV 107 WBC 5.1 platelet 161,000 sodium 125 iron 109 saturation 32 ferritin 75 vitamin B12 more than 1000 Labs from February 06 showed WBC 4.0 hemoglobin 11.6 platelet 148,000 sodium is 133 creatinine 0.9 Assessment: Plan: Patient Active Problem List Diagnosis Date Noted Macrocytic anemia 05/21/2022 Macrocytic anemia. Labs showed stable hemoglobin. No need for bone marrow biopsy testing. He will continue vitamin B12 only on the weekends along with multivitamin. Follow-up with labs in 6 months. Hyponatremia. Sodium has improved with fluid restriction. He will continue to follow with Dr. Johnson. Sertraline was discontinued likely contributing to hyponatremia. Testosterone deficiency. Stable. Hypertension. Stable. Hypothyroidism. Stable. This has been managed by the primary care physician. Follow-up in 6 months. 02/06/2025 Leo Livingston MD documented in this encounter Plan of Treatment Upcoming Encounters Date Type Department Care Team (Late st Contact Info) Description 08/13/2025 11:45 AM ACCOUNT ASSOCIATE Office Visit [facility] Oncology and Hematology - [place] [address] [facility] [address] [place] [address] Leo Livingston MD [address] [facility] [address] [place] [address] Scheduled Orders Name Type Priority Associated Diagnoses Orde r Schedule CBC WITH DIFFERENTIAL Lab Stat Chronic anemia Expected: 08/08/2025, Expires: 02/06/2026 BASIC METABOLIC PANEL Lab Stat Chronic anemia Expected: 08/08/2025, Expires: 02/06/2026 FERRITIN Lab Routine Chronic anemia Expected: 08/08/2025, Expires: 02/06/2026 IRON, TIBC, AND PERCENT SATURATION Lab Routine Chronic anemia Expected: 08/08/2025, Expires: 02/06/2026 VITAMIN B12 AND FOLATE Lab Routine Chronic anemia Expected: 08/08/2025, Expires: 02/06/2026 documented as of this encounter Visit Diagnoses Diagnosis Chronic anemia- Primary Anemia, unspecified documented in this encounter
== END 2025-02-06 11:11 | disposition home or self-care (01) ==
LOC: ANHLAB 11:11
PROVIDERS: PCP Nurse Practitioner Family; Visit Provider Internal Medicine Hematology & Oncology
DX: D64.9 Anemia, unspecified (principal)
CPT/HCPCS: 36415; 80047; 80053; 85025

== ENCOUNTER 2025-06-11 14:09 | Outpatient (CLI) | payer MEDICARE, OTHER, SELFPAY ==
[2025-06-11 15:11] LABS: Albumin Level 3.9 g/dL (3.5-5.1); Anion Gap 5 mmol/L (4-12); Blood Urea Nitrogen 21 mg/dL (9-20); Calcium 8.8 mg/dL (8.4-10.2); Carbon Dioxide 27 mmol/L (22-30); Chloride 102 mmol/L (98-107); Estimated Glomerular Filt Rate > 60; Glucose 87 mg/dL (65-110); Potassium 4.1 mmol/L (3.4-5.0); Sodium 134 mmol/L (137-145)
--- OUTSIDE RECORDS SUMMARY | 2025-06-11 15:21 | XMS_ITS | Clinical Summary ---
Author Organization [facility] laura [facility] Address [address] [place] [address] Care Team Providers Care Furnace Combustion Tester Name Role Phone Unavailable Primary Care Provider [...] mL by mouth one time only. Active mpfbger-igfn-ekj wa-qhhk-qsojwt 100 mg-150 mg- 50 mg-150 mg Capsule [...] Encounters Date Type Department Care Team Description 05/15/2025 External Device Data STL ABSTRACTION Provider, Abstract 05/15/2025 External Device Data STL ABSTRACTION Provider, Abstract 04/17/2025 External Device Data STL ABSTRACTION Provider, Abstract 04/17/2025 External Device Data STL ABSTRACTION Provider, Abstract 04/04/2025 External Device Data STL ABSTRACTION Provider, Abstract 03/14/2025 External Device Data STL ABSTRACTION Provider, Abstract 03/14/2025 External Device Data STL ABSTRACTION Provider, Abstract 03/14/2025 External Device Data STL ABSTRACTION Provider, Abstract 03/13/2025 External Device Data STL ABSTRACTION Provider, Abstract [...] st Contact Info) Description 08/13/2025 11:45 AM SUPERVISOR CAP AND HAT PRODUCTION Office Visit [facility] Oncology and Hematology - [place] [address] [facility] [address] [place] [id number] Leo Livingston MD [address] [facility] [address] [place] [address] Health Maintenance Due Date Last Done Comments DTAP/TDAP/TD VACCINES (1 - Tdap) 1960 ZOSTER VACCINE (1 of 2) 1991 RSV VACCINE (60+ or ) (1 - 1-dose 75+ series) 2016 PNEUMOCOCCAL VACCINE 50+ YEA RS (2 of 2 - PCV20 or PCV21) 06/29/2017 06/29/2016, 06/24/2016 INFLUENZA VACCINE (#1) 2025 , 06/11/2022, 06/30/2021, Additional history exists Insurance MEDICARE [employer] [facility]
--- OUTSIDE RECORDS SUMMARY | 2025-06-11 15:22 | XMS_ITS | Clinical Summary ---
Author Organization [facility] Address [address] [place] [address] Phone Care Team Providers Care Academic Program Specialist Name Role Phone Leo Livingston MD Unavailable [phone] Christiano York MD Unavailable [phone] Kwan Prado MD Unavailable Augusto Johnson MD Unavailable [phone] Jossie Montaño NP Primary Care Provider [phone] Allergies Active Allergy Reactions Criticality Noted Date Comments Amoxicillin Diarrhea,Rash Medium 02/03/2024 Medications aspirin 81 mg enteric coated tablet Take 1 tablet (81 mg total) by mouth daily Active glucosamine sulfate 500 mg capsule Take 1,000 mg by mouth daily Active garlic 100 mg tablet Take by mouth Active bluyqqj-pxdq-obhrn-oreg -capryl 100 mg-150 mg- 50 mg-150 mg [...] Active Additional Information Patient not taking.Reported on 04/17/2025 blood pressure monitor (Blood Pressure Kit) kitIndications:Essentia l hypertension Take blood pressure once daily 1 kit 024 Active finasteride (PROSCAR) 5 mg tablet Take 1 tablet (5 mg total) by mouth daily 100 tablet 4 025 Active tamsulosin (FLOMAX) 0.4 mg extended release capsuleIndications:OAB (overactive bladder) TAKE 1 CAPSULE EVERY DAY AFTER DINNER 90 capsule 3 025 Active simvastatin (ZOCOR) 40 mg tabletIndications:Coron crystal artery disease involving [place] coronary artery of [place] heart without angina pectoris,Stenosis of right carotid [...] needed for pain 60 tablet 025 Active ramipriL (ALTACE) 10 mg capsuleIndications:Esse ntial hypertension TAKE 1 CAPSULE TWICE DAILY 180 capsule 3 025 Active ofloxacin (FLOXIN) 0.3 % otic solution Administer 5 drops into each ear daily 5 mL 025 Active Active Problems Problem Noted Date Diagnosed Date Medicare annual wellness visit, subsequent 01/16 Assessment & Plan (01/16/2025 12:25 PM CDT): A yearly Medicare Annual Wellness Visit has been performed today. Venita Casillas Georgette is up to date on screening tests. He is in need of None- no screening indicated at this time- these have been ordered. He is not up to date on needed preventative vaccinations; He is in need of Tdap/Td, Pneumonia (Prevnar-13 or Pneumovax-23), Zoster, and Covid-19 (booster). These have been ordered/arranged unless otherwise indicated. 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 He does not wish to initiate any further medication for anxiety. He feels like he is doing okay without medication Hyponatremia 08/17/2024 Assessment & Plan (08/17/2024 2:25 PM HOT SEALING MACHINE OPERATOR): Improved. He has discontinued the sertraline. He saw his owner operator this morning. Patient is feeling better Neuropathy 03/30/2024 Assessment & Plan (09/19/2024 2:13 PM HOT SEALING MACHINE OPERATOR): Labs ordered Assessment & Plan (03/30/2024 [...] to put on a controlled substance agreement. [place] physician drug monitoring database reviewed Benign prostatic [...] Simvastatin. Assessment & Plan (09/25/2024 11:12 AM HOT SEALING MACHINE OPERATOR): Stable continue simvastatin Assessment & Plan [...] Felodipine. Assessment & Plan (09/25/2024 11:12 AM HOT SEALING MACHINE OPERATOR): Stable continue ramipril Assessment & Plan (09/19/2024 2:13 PM HOT SEALING MACHINE OPERATOR): Home BP's much improved, ranging 130's/60's the majority of the time with normal pulse. Elevated in office but pt also feeling pain, has appt with pain management this afternoon. Will have pt send home bp's in 1 week. Assessment & Plan (08/01/2024 2:16 PM HOT SEALING MACHINE OPERATOR): Home BP's not at goal, ranging [...] Carotid artery stenosis 02/21/2020 Assessment & Plan (03/22/2025 10:14 AM CDT): Remains asymptomatic. Continue aspirin statin therapy follow up in 6 months for routine surveillance with carotid duplex. We discussed indications for intervention which are not recommended at this time. Continue medical management. Assessment & Plan (09/25/2024 11:12 AM HOT SEALING MACHINE OPERATOR): Asymptomatic severe greater than 70% right [...] at goal Coronary artery disease invo [place]ving [place] coronary artery of [place] heart without angina pectoris 11/14/2019 Assessment & [...] with slight anemia. Following with Hematology[facility] at [facility]. Could be very subtle version of myelodysplastic syndrome but no definitive diagnosis. They are monitoring with lab work every 6 months. Denies any significant anemia or symptoms Resolved Problems Problem Noted Date Diagnosed Date Resolved Date Abdominal aortic aneurysm 12/29/2022 Overview (03/30/2024): 3.4 cm on 12/28/22 lumbar films Encounters Date Type Department Care Team Description 05/30/2025 10:15 AM CDT Immunization [facility] Primary Care at [address] [address] 04/17/2025 11:30 AM CDT Office Visit [facility] Convenient Care at [address] [id number] India Siddiqui PA Bilateral impacted cerumen (Primary Dx) 04/17/2025 11:00 AM CDT Office Visit [facility] Cardiology at [address] [place] [phone] Christiano York MD Coronary artery disease involving [place] coronary artery of [place] heart without angina pectoris (Primary Dx) 03/21/2025 10:45 AM CDT Office Visit [facility] Vascular at [address] [place] [address] Ann Joyner NP Pure hypercholesterolemia (Primary Dx); Essential hypertension; Bilateral carotid artery stenosis 03/21/2025 Orders Only [facility] Vascular at [address] [place] [address] Natalie Lopez MD Stenosis of right carotid artery (Primary Dx) 03/13/2025 2:00 PM CDT Ancillary Procedure [facility] Vascular and Vein Surgery at [address] [place] [address] Bilateral carotid artery stenosis from Last 3 Months Immunizations Immunization Administration Dates Next Due Influenza, Quadrivalent, Hig h Dose, Preservative Free, Intrr 06/11/2022,06/30/2021,06/10/2020 Influenza, Quadrivalent, Spl it, Preservative Free, Intramuscular 07/03/2015 Influenza, Trivalent, High D ose, Split, Preservative Free, Intramuscular 05/30/2025,06/20/2024,06/20/2019,06/20,06/10/2017,06/29/2016 Influenza, Unspecified 08/30/2023(Deferr ed: Patient Refused),08/30/2022(Deferred: Patient [...] on file Legal Sex Male 6:23 AM HOT SEALING MACHINE OPERATOR Gender Identity Male 02/22/2018 2:20 PM CDT Sexual Orientation Not on file Obstetrics History Last Filed Vital Signs Vital Sign Reading Time Taken Comments Blood Pressure 167/73 04/17/2025 11:43 AM CDT Pulse 75 04/17/2025 11:43 AM CDT Temperature 36.9 C (98.4 F) 04/17/2025 11:43 AM CDT Respiratory Rate 20 04/17/2025 11:43 AM CDT Oxygen Saturation 98% 04/17/2025 11:43 AM CDT Inhaled Oxygen Concentration - - Weight 67.7 kg (149 lb 4.8 oz) 04/17/2025 11:43 AM CDT Height 172.7 cm (5' 7.99) 04/17/2025 11:43 AM C DT Body Mass Index 22.71 04/17/2025 11:43 AM CDT Plan of Treatment Health Maintenance Due Date Last Done Comments DTaP/Tdap/Td Vaccine (1 - Tdap) 1951 Zoster Vaccine (1 of 2) 1991 Pneumococcal vaccine 65+ (2 of 2 - PCV20 or PCV21) 06/29/2017 06/29/2016, 06/24/2016 Covid-19 Vaccine (4 - 2024-2 6 season) 2025 07/16/2021, 10/29/2020, 09/26/2020 Depression Screening 01/16/2026 01/16/2025, 12/19/2024, 09/19/2024, Additional history exists Fall Risk Assessment 01/16/2026 01/16/2025, 08/01/2024, 06/19/2024, Additional history exists Well Visit 65+ 01/16/2026 01/16/2025 Hepatitis B Screening Completed 03/31/2024 Influenza Vaccine Completed 05/30/2025, , 06/11/2022, Additional history exists Procedures Procedure Name Priority Date/Time Associated Diagnosis Comments NC REMOVAL IMPACTED CERUMEN INSTRUMENTATION UNILAT Routine 04/17/2025 11:30 AM CDT Bilateral impacted cerumen CAROTIDS DUPLEX BILATERAL Schedule Routine, Read Routine (OP Routine) 03/13/2025 2:25 PM CDT Bilateral carotid artery stenosis from Last 3 Months Results * NC REMOVAL IMPACTED CERUMEN INSTRUMENTATION UNILAT (04/17/2025 11:30 AM CDT) Narrative India Siddiqui PA - 04/17/2025 11:30 AM CDT India Siddiqui PA 04/17/2025 12:06 PM Ear Cerumen Removal Performed by: India Siddiqui PA Authorized by: India Siddiqui PA Consent Given by: Patient Verbal consent obtained: Yes Location: Bilateral L ear cerumen impacted?: Yes L ear method of removal: Instrumentation, magnification and irrigation L ear instrumentation: Curette L ear magnification: Otoscope R ear cerumen impacted?: Yes R ear method of removal: Instrumentation, magnification and irrigation R ear instrumentation: Curette R ear magnification: Otoscope Inspection: TM intact Hearing quality: Improved Patient tolerance: Patient tolerated the procedure well with no immediate complications us [place] [facility]/BEDSIDE ORDERA BLES Final Result * US Carotids Duplex Bilateral (03/13/2025 2:25 PM CDT) Anatomical Region Laterality Modality Vascular Bilateral Ultrasound 03/13/2025 1:58 PM CDT Narrative 03/14/2025 12:04 PM CDT Vascular & Vein Surgery [facility] [place] [address] Carotid Duplex Ultrasound Report Patient Name: VENITA MINOR A : 1940 (84y 9m) Study Date: 03/13/2025 1:58:02 PM Gender: M Manager Personnel Selection: Location: [facility] Ref Provider: NATALIE LOPEZ Quality: Adequate Order Provider: NATALIE LOPEZ PROCEDURES: Carotid Report: Carotid duplex examination of the extracranial arteries was performed using 2D, color and spectral Doppler. INDICATIONS: Follow up carotid stenosis. HISTORY: HTN. HLD. CAD. Former smoker. COMPARISONS: No change compared to prior study. The previous exam was completed on 08/07/24: Rt >70, Lt <50. MEASUREMENTS: Right Value Left Value RT Prox CCA PSV 74 cm/sec LT Prox CCA PSV 120 cm/sec RT Prox CCA EDV 7 cm/sec LT Prox CCA EDV 17 cm/sec RT Distal CCA PSV 85 cm/sec LT Distal CCA PSV 88 cm/sec RT Distal CCA EDV 14 cm/sec LT Distal CCA EDV 15 cm/sec RT Prox ICA PSV 285 cm/sec LT Prox ICA PSV 69 cm/sec RT Prox ICA EDV 62 cm/sec LT Prox ICA EDV 18 cm/sec RT Mid ICA PSV 84 cm/sec LT Mid ICA PSV 83 cm/sec RT Mid ICA EDV 13 cm/sec LT Mid ICA EDV 24 cm/sec RT Distal ICA PSV 50 cm/sec LT Distal ICA PSV 74 cm/sec RT Distal ICA EDV 15 cm/sec LT Distal ICA EDV 22 cm/sec RT ECA Prx PSV 134 cm/sec LT ECA Prx PSV 135 cm/sec RT ICA/CCA 3.35 ratio LT ICA/CCA 0.94 ratio Rt Vert Dst PSV 52 cm/sec Lt Vert Dst PSV 55 cm/sec FINDINGS: Rt Common Carotid Artery: Duplex imaging of the right common carotid artery is within normal limits without evidence of atherosclerotic disease. Rt Internal Carotid Artery: The plaque in the right internal carotid artery appears to be heterogeneous and irregular. Significant atherosclerotic changes of the right internal carotid artery with elevated peak systolic velocity and end diastolic velocity, as above. >70% stenosis. Rt External Carotid Artery: The right external carotid artery is patent without evidence of atherosclerotic plaque. Rt Vertebral Artery: The right vertebral artery is patent with antegrade flow. Lt Common Carotid Artery: Duplex imaging of the left common carotid artery is within normal limits without evidence of atherosclerotic disease. Lt Internal Carotid Artery: The plaque in the left internal carotid artery appears to be heterogeneous and smooth. Atherosclerotic changes of the left internal carotid artery without hemodynamically significant Doppler findings. <50% stenosis. Lt External Carotid Artery: The left external carotid artery is patent without evidence of atherosclerotic plaque. Lt Vertebral Artery: The left vertebral artery is patent with antegrade flow. Comments: Brachial artery systolic blood pressure is 138 on the right, 130 on the left. CONCLUSIONS: 1. The right internal carotid artery disease is consistent with severe, greater than 70% stenosis. 2. The left internal carotid artery disease is consistent with a less than 50% stenosis. ATTESTATION: I have reviewed and interpreted the pertinent images and measurements of this study. I attest to the conclusions in the final report that is provided above. Electronically Signed By: Natalie Lopez MD 03/14/2025 11:07:09 AM CDT Procedure Note Natalie Lopez MD - 03/14/2025 Vascular & Vein Surgery [address] [place] [id number] Carotid Duplex Ultrasound Report Patient Name: VENITA MINOR A : 1940 (84y 9m) Study Date: 03/13/2025 1:58:02 PM Gender: M Manager Personnel Selection: Location: [facility] Ref Provider: NATALIE LOPEZ Quality: Adequate Order Provider: NATALIE LOPEZ PROCEDURES: Carotid Report: Carotid duplex examination of the extracranial arterieswas performed using 2D, color and spectral Doppler. INDICATIONS: Follow up carotid stenosis. HISTORY: HTN. HLD. CAD. Former smoker. COMPARISONS: No change compared to prior study. The previous exam was completed on08/07/24: Rt >70, Lt <50. MEASUREMENTS: Right Value Left Value RT Prox CCA PSV 74 cm/sec LT Prox CCA PSV 120 cm/sec RT Prox CCA EDV 7 cm/sec LT Prox CCA EDV 17 cm/sec RT Distal CCA PSV 85 cm/sec LT Distal CCA PSV 88 cm/sec RT Distal CCA EDV 14 cm/sec LT Distal CCA EDV 15 cm/sec RT Prox ICA PSV 285 cm/sec LT Prox ICA PSV 69 cm/sec RT Prox ICA EDV 62 cm/sec LT Prox ICA EDV 18 cm/sec RT Mid ICA PSV 84 cm/sec LT Mid ICA PSV 83 cm/sec RT Mid ICA EDV 13 cm/sec LT Mid ICA EDV 24 cm/sec RT Distal ICA PSV 50 cm/sec LT Distal ICA PSV 74 cm/sec RT Distal ICA EDV 15 cm/sec LT Distal ICA EDV 22 cm/sec RT ECA Prx PSV 134 cm/sec LT ECA Prx PSV 135 cm/sec RT ICA/CCA 3.35 ratio LT ICA/CCA 0.94 ratio Rt Vert Dst PSV 52 cm/sec Lt Vert Dst PSV 55 cm/sec FINDINGS: Rt Common Carotid Artery: Duplex imaging of the right common carotidartery is within normal limits without evidence of atherosclerotic disease. Rt Internal Carotid Artery: The plaque in the right internal carotidartery appears to be heterogeneous and irregular. Significant atherosclerotic changes of theright internal carotid artery with elevated peak systolic velocity and end diastolicvelocity, as above. >70% stenosis. Rt External Carotid Artery: The right external carotid artery is patentwithout evidence of atherosclerotic plaque. Rt Vertebral Artery: The right vertebral artery is patent with antegradeflow. Lt Common Carotid Artery: Duplex imaging of the left common carotid arteryis within normal limits without evidence of atherosclerotic disease. Lt Internal Carotid Artery: The plaque in the left internal carotid arteryappears to be heterogeneous and smooth. Atherosclerotic changes of the left internalcarotid artery without hemodynamically significant Doppler findings. <50% stenosis. Lt External Carotid Artery: The left external carotid artery is patentwithout evidence of atherosclerotic plaque. Lt Vertebral Artery: The left vertebral artery is patent with antegradeflow. Comments: Brachial artery systolic blood pressure is 138 on the right, 130on the left. CONCLUSIONS: 1. The right internal carotid artery disease is consistent with severe,greater than 70% stenosis. 2. The left internal carotid artery disease is consistent with a less than50% stenosis. ATTESTATION: I have reviewed and interpreted the pertinent images and measurements ofthis study. I attest to the conclusions in the final report that is provided above. Electronically Signed By: Natalie Lopez MD 03/14/2025 11:07:09 AM CDT Natalie Lopez MD IM US PROCEDURES Final Result from Last 3 Months Insurance MEDICARE [facility] MEDIC[place] [employer] [place] Member Subscriber Plan / Payer ( fective 2012-Present) Name:Venita Minor Relation to Subscriber:Self Name:Venita Minor Payer ID:[id number] Group ID:Not on file Type:COMMERCIAL Address: [facility] [address] [place], [place] MEDICARE [employer] Member Subscriber Plan / Payer ( fective 2012-Present) Name:Venita Minor Relation to Subscriber:Self Name:Venita Minor Payer ID:[id number] Group ID:[id number] Type:COMMERCIAL Address: [facility] [address] [place], [place] Care Teams Academic Program Specialist Relationship Specialty Start Date End Date Jossie Montaño NP [address] [facility] [address] [place] [address] PCP - General Family Medicine 06/19/24 Leo Livingston MD [address] [place] [address] Referring Physician Hematology 03/30/24 Christiano York MD [address] [facility] [address] [place] [address] Consulting Physician Cardiology 03/30/24 Kwan Prado MD [address] [facility] [address] [place] [address] Consulting Physician Urology 03/30/24 Augusto Johnson MD [address] [facility] [address] [place] [address] Referring Physician Nephrology 03/30/24
--- OUTSIDE RECORDS SUMMARY | 2025-06-11 15:22 | XMS_ITS | Clinical Summary ---
Author Organization [facility] Address [address] [place] [address] Care Team Providers Care Card Dealer Name Role Phone Maykel Rubin MD Primary Care Provider [phone] Source Comments [facility],non-owned Affiliates and Associated Physician Practices is amultiple site organization consisting of ambulatory clinics and hospital sitesin [place], [place], [place] and [place]. This disclosure is being madepursuant to the Care Everywhere program and may not contain all information available regarding this patient. 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 Gender Identity Not on file Sexual Orientation Not on file Plan of Treatment Health Maintenance Due Date Last Done Comments MEDICARE AWV 12 MONTHS 1940 DTAP/TDAP/TD VACCINES (1 - Tdap) 1960 PNEUMOCOCCAL VACCINE 50+ (1 of 1 - PCV) 1991 ZOSTER VACCINE (1 of 2) 1991 Respiratory Syncytial Virus (RSV) Vaccine Pt: or over 60 yrs (1 - 1-dose 75+ series) 2016 DEPRESSION SCREENING 08/30/2024 COVID-19 VACCINE (1 - 2023-2 5 season) 2025 INFLUENZA VACCINE (#1) 2025 HEPATITIS B VACCINE Aged Out No [...] topic Insurance MEDICARE [employer] Care Teams Card Dealer Relationship Specialty Start Date End Date Maykel Rubin MD PCP - General 07/10/09
--- OUTSIDE RECORDS SUMMARY | 2025-06-11 15:22 | XMS_ITS | Encounter Summary ---
Author Organization [facility] Address [address] [place] [address] Care Team Providers Care General Activities Therapist Name Role Phone Maykel Rubin MD Primary Care Provider [phone] Encounter Details Date Type Department Care Team (Late st Contact Info) Description 04/13/2023 Lab Requisition [facility] - DermPath Lab [address] [facility] [place] [address] Manjit Gomes MD [facility] DERMATOLOGY [address] [place] [phone] Neoplasm of uncertain behavior of skin Social History Tobacco Use Types Packs/Day Years Used Date Smoking Tobacco: Never Assessed Sex and Gender Information Value Date Recorded Sex Assigned at Not on file 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 Gender Identity Not on file Sexual Orientation Not on file documented as of this encounter Plan of Treatment Not on file documented as of this encounter Procedures Procedure Name Priority Date/Time Associated Diagnosis Comments DERMATOPATHOLOGY Routine 04/13/2023 12:0 0 AM CDT Neoplasm of uncertain behavior of skin documented in this encounter Results * DERMATOPATHOLOGY (04/13/2023 12:00 AM CDT) Case Report Dermatopathology Report Case: [id number] Authorizing Provider: Manjit Gomes MD Collected: 04/13/2023 12:00 AM Ordering Location: [facility] DermPath Lab Received: 04/14/2023 01:06 PM Pathologist: [...] characteristic determined by the Dermatopathology Laboratory at [facility], directed by Dr. Jose Armando Mckenzie. These tests need not be, and therefore are not, approved by the [place] Food and Drug Administration. The tests are used for clinical purposes. Billing Codes Specimen Charges Stain Charges 50618 42722 1 1 3:07 PM CDT DERMATOPATHOLOGY LABORATORY Embedded Images 3:07 PM CDT DERMATOPATHOLOGY LABORATORY Pathology/Cytology TISSUE SPECIMEN FROM SKIN / Unknown 04/13/2023 04/14/2023 1:06 PM CDT Miscellaneous samples (specimen) TISSUE SPECIMEN FROM SKIN / Unknown 04/13/2023 04/14/2023 1:06 PM CDT Manjit Gomes MD LAB - PATHOLOGY/CYTOLOGY [place] [facility] Final Result DERMATOPATHOLOGY LABORATORY [facility] - Department of Dermatology [facility] Medicine [address] [place] [address], [address] [phone] documented in this encounter Visit Diagnoses Diagnosis Neoplasm of uncertain behavior of skin documented in this encounter Care Teams General Activities Therapist Relationship Specialty Start Date End Date Maykel Rubin MD PCP - General 07/10/09 documented as of this encounter
[2025-06-11 15:49] LABS: Total Protein Urine Random < 5 mg/dL; Ur Ttl Prot Creatinine Ratio < 0.11 mg/mg (0-0.20)
== END 2025-06-11 14:10 | disposition home or self-care (01) ==
PROVIDERS: PCP Nurse Practitioner Family; Visit Provider Internal Medicine Nephrology
DX: E87.1 Hypo-osmolality and hyponatremia (principal)
CPT/HCPCS: 36415; 80069; 82570; 84156

== ENCOUNTER 2025-08-08 10:43 | Outpatient (CLI) | payer MEDICARE, OTHER, SELFPAY ==
[2025-08-08 11:07] LABS: Hematocrit 34.2 % (42.0-52.0); Hemoglobin 11.6 g/dL (14.0-18.0); Immature Granulocyte Percent A 0.3 % (0-0.5); Lymphocytes Absolute Auto 0.88 K/mm3 (0.9-3.2); Mean Corpuscular HGB Conc 33.9 g/dl (32-36); Mean Corpuscular Hemoglobin 36.8 pg (26-34); Mean Corpuscular Volume 108.6 fl (80-100); Nucleated Red Blood Cells Absolute Auto 0.000 K/mm3 (0.0-0.012); Nucleated Red Blood Cells Perc 0.0 % (0.0-0.2); Platelet Count Result 148 k/mm3 (150-375); Red Blood Count 3.15 M/mm3 (4.6-6.20); White Blood Count 3.9 K/mm3 (4.5-10.0)
[2025-08-08 11:31] LABS: Anion Gap 3 mmol/L (4-12); Blood Urea Nitrogen 17 mg/dL (9-20); Calcium 9.2 mg/dL (8.4-10.2); Carbon Dioxide 26 mmol/L (22-30); Chloride 101 mmol/L (98-107); Estimated Glomerular Filt Rate > 60; Glucose 99 mg/dL (65-110); Potassium 4.5 mmol/L (3.4-5.0); Sodium 130 mmol/L (137-145)
[2025-08-08 11:48] LABS: Iron 124 ug/dL (49-181)
[2025-08-08 11:57] LABS: Percent Iron Saturation 37 % (20-50)
[2025-08-08 12:38] LABS: Ferritin 61.00 ng/mL (11.1-264)
[2025-08-08 12:42] LABS: Vitamin B12 621.0 pg/mL (239-931)
== END 2025-08-08 10:44 | disposition home or self-care (01) ==
LOC: ANHLAB 10:44
PROVIDERS: PCP Nurse Practitioner Family; Visit Provider Internal Medicine Hematology & Oncology
DX: D64.9 Anemia, unspecified (principal)
CPT/HCPCS: 36415; 80048; 82607; 82728; 82746; 83540; 83550; 85025